=== PATIENT | male | born 1970 | race Caucasian/White ===

== ENCOUNTER → 2018-03-26 12:25 | Outpatient (CLI) | payer BC, SELFPAY ==
--- NOTE | 2018-03-26 12:32 | RAD_ITS ---
STUDY: X-RAY - RIGHT ANKLE REASON FOR EXAM: Male, 47 years old. Injury. Pain. TECHNIQUE: 3 view(s) of the ankle. COMPARISON: None. FINDINGS: Normal visualized distal tibia and fibula. Normal medial and lateral malleoli. Normal tibiotalar articulation and ankle mortise. Normal visualized talus and calcaneus. The visualized subtalar, talonavicular, calcaneocuboid and tarsal articulations are normal. There is no demonstrated fracture. The soft tissue structures are unremarkable. RAD/Ankle min 3 Views IMPRESSION: Normal x-ray examination of the ankle. Electronically Signed: Jass Grider MD at 17:33 EDT , Service support ,
== END ==
LOC: MTRAD 12:27
PROVIDERS: Family Provider Family Medicine; PCP Family Medicine; Visit Provider Family Medicine
DX: S93.491A Sprain of other ligament of right ankle, initial encounter (principal); X58.XXXA Exposure to other specified factors, initial encounter
CPT/HCPCS: 73610

== ENCOUNTER → 2018-04-03 15:57 | Outpatient (CLI) | payer BC, SELFPAY ==
[2018-04-03 18:23] LABS: Anion Gap 10 (5-15); BUN 25 mg/dL (7-18); BUN/Creat Ratio 26.2 RATIO (10-20); Chloride 106 mmol/L (98-107); Creatinine, Serum 0.96 mg/dL (0.70-1.30); EST Glomerular Filtration Rate 90 mL/min (>60); Est Glom Filt Rate - Afr Amer 109 mL/min (>60); Glucose 88 mg/dL (74-106); Potassium 3.6 mmol/L (3.5-5.1); Sodium Level 142 mmol/L (136-145)
== END ==
PROVIDERS: Family Provider Family Medicine; PCP Family Medicine; Visit Provider Family Medicine
DX: I10 Essential (primary) hypertension (principal)
CPT/HCPCS: 36415; 80048

== ENCOUNTER → 2019-05-17 14:30 | Outpatient (CLI) | payer BC, SELFPAY ==
[2019-05-17 16:24] LABS: Anion Gap 6 (5-15); BUN 15 mg/dL (7-18); BUN/Creat Ratio 19.3 RATIO (10-20); Calcium,Total 8.7 mg/dL (8.5-10.1); Chloride 111 mmol/L (98-107); Cholesterol 158 mg/dL (200); Creatinine, Serum 0.78 mg/dL (0.70-1.30); EST Glomerular Filtration Rate 114 mL/min (>60); Est Glom Filt Rate - Afr Amer 137 mL/min (>60); Glucose 79 mg/dL (74-106); High Density Lipoprotein 33 mg/dL; Potassium 3.6 mmol/L (3.5-5.1); Sodium Level 143 mmol/L (136-145); Triglycerides 106 mg/dL; Very Low Density Lipoprotein 21 mg/dL (5-40)
== END ==
PROVIDERS: Family Provider Family Medicine; PCP Family Medicine; Referring Provider Family Medicine; Visit Provider Family Medicine
DX: I10 Essential (primary) hypertension (principal)
CPT/HCPCS: 36415; 80048; 80061

== ENCOUNTER → 2020-05-29 16:49 | Outpatient (CLI) | payer BC, SELFPAY ==
[2020-05-29 19:19] LABS: Anion Gap 5 (5-15); BUN 19 mg/dL (7-18); BUN/Creat Ratio 22.1 RATIO (10-20); Calcium,Total 8.4 mg/dL (8.5-10.1); Chloride 111 mmol/L (98-107); Cholesterol 139 mg/dL (200); Creatinine, Serum 0.86 mg/dL (0.70-1.30); EST Glomerular Filtration Rate 101 mL/min (>60); Est Glom Filt Rate - Afr Amer 122 mL/min (>60); Glucose 88 mg/dL (74-106); High Density Lipoprotein 31 mg/dL; Potassium 3.7 mmol/L (3.5-5.1); Sodium Level 142 mmol/L (136-145); Triglycerides 143 mg/dL; Very Low Density Lipoprotein 29 mg/dL (5-40)
== END ==
PROVIDERS: PCP Family Medicine; Visit Provider Family Medicine
DX: I10 Essential (primary) hypertension (principal)
CPT/HCPCS: 36415; 80048; 80061

== ENCOUNTER → 2021-06-16 09:52 | Outpatient (CLI) | payer BC, SELFPAY ==
[2021-06-16 12:22] LABS: Anion Gap 7 (5-15); BUN 17 mg/dL (7-18); BUN/Creat Ratio 24.4 RATIO (10-20); Calcium,Total 8.7 mg/dL (8.5-10.1); Chloride 111 mmol/L (98-107); Cholesterol 174 mg/dL (200); EST Glomerular Filtration Rate 127 mL/min (>60); Est Glom Filt Rate - Afr Amer 154 mL/min (>60); Glucose 86 mg/dL (74-106); High Density Lipoprotein 32 mg/dL; Potassium 3.7 mmol/L (3.5-5.1); Sodium Level 141 mmol/L (136-145); Triglycerides 148 mg/dL; Very Low Density Lipoprotein 30 mg/dL (5-40)
== END ==
PROVIDERS: PCP Family Medicine; Referring Provider Family Medicine; Visit Provider Family Medicine
DX: I10 Essential (primary) hypertension (principal)
CPT/HCPCS: 36415; 80048; 80061

== ENCOUNTER 2021-12-31 14:47 | Outpatient (CLI) | payer BC, SELFPAY ==
[2021-12-31 17:57] LABS: PSA,Total - Annual Screen 2.04 ng/mL (0.00-4.00)
== END 2021-12-31 23:59 | disposition home or self-care (01) ==
LOC: MFPLAB 14:48
PROVIDERS: PCP Family Medicine; Referring Provider Family Medicine; Visit Provider Family Medicine
DX: Z00.00 Encounter for general adult medical examination without abnormal findings (principal); Z12.5 Encounter for screening for malignant neoplasm of prostate
CPT/HCPCS: 36415; 84153; G0103

== ENCOUNTER → 2023-02-17 | Outpatient (CLI) | payer BC, SELFPAY ==
--- NOTE | 2023-02-17 07:49 | CT_ITS ---
STUDY: LOW DOSE CT LUNG CANCER SCREENING REASON FOR EXAM: Male, 52 years old. screening- current smoker. 1PPD X 21 YEARS RADIATION DOSAGE (If Supplied By Facility): CTDIvol = ( 4.02 ) mGy, DLP = ( 154.01 ) mGycm TECHNIQUE: No contrast was administered. Low dose technique was utilized (average mAS-38 and kVp 120). 1.25 mm axial source images with a slice interval of 1.25-mm were reconstructed in lung windows. 2.5 mm axial source images with a slice interval of 2.5-mm were reconstructed in lung windows. 5.0 mm axial source images with a slice interval of 5.0-mm were reconstructed in soft tissue windows. COMPARISON: None. NODULES: No suspicious nodules are seen. Emphysema: Unremarkable. Endobronchial lesion: Unremarkable. Aorta: Remarkable. CORONARY ARTERIES: Coronary artery calcification is not seen. Heart: Unremarkable. Pulmonary artery: Unremarkable. Mediastinal nodes: Small benign-appearing mediastinal lymph nodes. Other chest and abdominal findings: CT/Low Dose CT Lung Screening IMPRESSION: Lung-RADS category 2 - Continue annual screening with LDCT in 12 months. IMPORTANT NOTES FOR USE: ACR Lung-RADS Version 1.1 Assessment Categories Release Date: 2018 Category: Coded 0-4 bases on nodule(s) with highest degree of suspicion. Negative screen is defined as categories 1 and 2; a positive screen is defined as categories 3 and 4. Category 3 and 4A nodules that are unchanged on interval CT should be coded as category 2, and individuals returned to screening in 12 months. Category 4X: Category 3 or 4 nodules with additional imaging findings that increase the suspicion of lung cancer, such as spiculation, GGN that doubles in size in 1 year, enlarged lymph notes, etc. Category Modifiers: S (significant finding unrelated to lung cancer) Electronically Signed: Gregorio Ibrahim MD at 14:55 EDT ,
[2023-02-17 10:43] LABS: ALB/GLOB Ratio 1.1 RATIO (0.9-2.4); AST(SGOT) 27 U/L (15-37); Alanine Aminotransfer ALT/SGPT 43 U/L (16-61); Albumin, Serum 3.9 g/dL (3.2-5.0); Alkaline Phosphatase 90 U/L (45-117); Anion Gap 4 (5-15); BUN 13 mg/dL (7-18); Calcium,Total 8.8 mg/dL (8.5-10.1); Chloride 111 mmol/L (98-107); Cholesterol 167 mg/dL (200); Creatinine, Serum 0.68 mg/dL (0.70-1.30); EST Glomerular Filtration Rate 130 mL/min (>60); Est Glom Filt Rate - Afr Amer 157 mL/min (>60); Globulin 3.4 g/dL (2.2-4.2); Glucose 104 mg/dL (74-106); High Density Lipoprotein 34 mg/dL; Potassium 3.7 mmol/L (3.5-5.1); Protein, Total 7.3 g/dL (6.4-8.2); Sodium Level 142 mmol/L (136-145); Triglycerides 76 mg/dL; Very Low Density Lipoprotein 15 mg/dL (5-40)
== END | disposition home or self-care (01) ==
PROVIDERS: PCP Family Medicine; Referring Provider Nurse Practitioner Family; Visit Provider Nurse Practitioner Family
DX: Z12.2 Encounter for screening for malignant neoplasm of respiratory organs (principal); F17.210 Nicotine dependence, cigarettes, uncomplicated; Z13.220 Encounter for screening for lipoid disorders; Z13.1 Encounter for screening for diabetes mellitus
CPT/HCPCS: 36415; 71271; 80053; 80061

== ENCOUNTER → 2024-03-15 | Outpatient (CLI) | payer BC, SELFPAY ==
[2024-03-15 10:40] LABS: Anion Gap 5 (5-15); BUN 15 mg/dL (7-18); BUN/Creat Ratio 18.1 RATIO (10-20); Calcium,Total 8.9 mg/dL (8.5-10.1); Chloride 109 mmol/L (98-107); Cholesterol 149 mg/dL (200); Creatinine, Serum 0.83 mg/dL (0.70-1.30); EST Glomerular Filtration Rate 104 mL/min (>60); Est Glom Filt Rate - Afr Amer 125 mL/min (>60); Glucose 91 mg/dL (74-106); High Density Lipoprotein 29 mg/dL; Potassium 3.7 mmol/L (3.5-5.1); Sodium Level 141 mmol/L (136-145); Triglycerides 65 mg/dL; Very Low Density Lipoprotein 13 mg/dL (5-40)
== END | disposition home or self-care (01) ==
LOC: MTLAB 08:57
PROVIDERS: PCP Family Medicine; Referring Provider Family Medicine; Visit Provider Family Medicine
DX: Z00.00 Encounter for general adult medical examination without abnormal findings (principal)
CPT/HCPCS: 36415; 80048; 80061

== ENCOUNTER 2024-04-12 11:25 | Outpatient (CLI) | payer BC, SELFPAY ==
[2024-04-12 16:25] LABS: Anion Gap 7 (5-15); BUN 15 mg/dL (7-18); BUN/Creat Ratio 21.6 RATIO (10-20); Chloride 110 mmol/L (98-107); Cholesterol 175 mg/dL (200); EST Glomerular Filtration Rate 126 mL/min (>60); Est Glom Filt Rate - Afr Amer 153 mL/min (>60); Glucose 103 mg/dL (74-106); High Density Lipoprotein 32 mg/dL; PSA,Total- Diagnostic 1.96 ng/mL (0.0-4.0); Potassium 3.6 mmol/L (3.5-5.1); Sodium Level 141 mmol/L (136-145); Triglycerides 191 mg/dL; Very Low Density Lipoprotein 38 mg/dL (5-40)
[2024-04-12 17:32] LABS: Protein, Urine (Random) 12.1 mg/dL (<11.9); Protein:Creat Ratio 110 mg/g CRE (0-200)
== END 2024-04-12 23:59 | disposition home or self-care (01) ==
LOC: MFPLAB 11:25
PROVIDERS: PCP Family Medicine; Visit Provider Family Medicine
DX: Z12.5 Encounter for screening for malignant neoplasm of prostate (principal); I10 Essential (primary) hypertension
CPT/HCPCS: 36415; 80048; 80061; 82570; 84153; 84156

== ENCOUNTER → 2024-04-19 | Outpatient (CLI) | payer BC, SELFPAY ==
--- NOTE | 2024-04-19 08:33 | US_ITS ---
STUDY: ABDOMINAL ULTRASOUND - RIGHT UPPER QUADRANT REASON FOR VISIT: Male, 53 years old right upper quadrant pain TECHNIQUE: Ultrasound evaluation of the right upper quadrant was performed with real-time and static rowland-scale imaging. TECHNICAL QUALITY: Limited. Examination limited due to a combination of factors including obesity and bowel gas. COMPARISON: None. FINDINGS: Liver: The liver is enlarged and measures 22.1 cm. There is increased echogenicity consistent with fatty infiltration. The bile ducts are within normal limits. There is hepatic color flow. The direction of portal flow is hepatopetal. There is no demonstrated mass lesion. Gallbladder: Normal distended gallbladder. The gallbladder wall is thickened and measures 3.6 mm. There is a negative sonographic Dietz''s sign. There is no pericholecystic fluid. There are multiple echogenic structures within the gallbladder, consistent with multiple gallstones. Common Bile Duct (C.B.D.): The common bile duct measures 4.5 mm. Pancreas: Normal size of the head, body and tail of the pancreas. There is normal echogenicity of the pancreas. There is no demonstrated pancreatic mass or cyst. Right Kidney: Normal size of the right kidney. The right kidney measures 12.7 cm x 5.7 cm x 4.3 cm. Normal renal cortex. The right cortex measures 1.3 cm. There is no demonstrated renal mass or cyst. There is no right hydronephrosis. US/Abdomen Limited IMPRESSION: Hepatomegaly and diffuse fatty infiltration of the liver. Multiple gallstones. Questionable adenomyomatosis of the gallbladder. Electronically Signed: Gregorio Ibrahim MD at 9:39 EDT ,
== END | disposition home or self-care (01) ==
LOC: US 08:30
PROVIDERS: PCP Family Medicine; Referring Provider Family Medicine; Visit Provider Family Medicine
DX: R10.11 Right upper quadrant pain (principal)
CPT/HCPCS: 76705

== ENCOUNTER 2024-05-13 12:36 | Observation (INO) | payer BC, SELFPAY ==
[2024-05-13] VITALS (19 sets, daily range): BP systolic 128–153; BP diastolic 75–115; PULSE 73–113; RESP 14–24; TEMP 36.1–36.8; O2SAT 91–100; BMI 35.4; BMI 35.6
--- NOTE | 2024-05-13 09:01 | EKG12_ITS ---
Test Reason : PREOP Blood Pressure : / mmHG Vent. Rate : 075 BPM Atrial Rate : 075 BPM P-R Int : 180 ms QRS Dur : 082 ms QT Int : 394 ms P-R-T Axes : 012 005 033 degrees QTc Int : 439 ms Normal sinus rhythm Normal ECG When compared with ECG of 13-MAY-2010 11:14, No significant change was found Confirmed by Byron Michelle ([id number]), electronic news gathering editor DANA TATUM ([id number]) on 05/17/2024 9:24:16 AM Referred By: Jose Coronado Confirmed By:Byron Michelle
[2024-05-13] MEDS: Lactated Ringers 1,000 ML 15 ML IV (09:19)
[2024-05-13 09:33] LABS: Hematocrit 45.8 % (40-54); Hemoglobin 15.8 g/dL (13.0-16.5); Mean Corp Hgb Conc 34.5 g/dL (32-36); Mean Corpuscular Hgb 30.9 pg (27.0-32.0); Mean Corpuscular Volume 89.5 fL (80-94); Mean Platelet Vol. 10.8 fl (6.2-12.0); Platelet Count 188 K/mm3 (150-450); RBC Distribution Width CV 12.5 % (11.6-14.6); Red Blood Count 5.12 M/mm3 (4.6-6.2); White Blood Count 11.7 K/mm3 (4.4-11.0)
--- NOTE | 2024-05-13 09:42 | PCM.PRE.AN2 ---
ASA Classification* ASA Classification ASA Classification: 2 Assessment & Plan Anesthesia* Anesthesia Assessment Anesthesia Assessment: Discussed sedation and/or anesthesia options, risks, benefits, and alternatives with patient/parents/legal guardian/POA. Questions invited. The patient/parents/legal guardian/POA seems to understand and agrees to proceed with anesthesia plan. Reviewed the physical assessment, medical history, allergy history and patient home medications list prior to surgery/procedure/anesthetic and documented any changes. Performed airway and anesthesia risk assessments. Anesthesia Type Anesthesia Type: General (see written pre anesthesia record for full assessment) Anesthesia Focused Assessment* Temperature: 97.7 F Pulse Rate: 73 Blood Pressure: 132/95 Respiratory Rate: 16 Pulse Ox: 100 Airway Assessment Mouth opens: >3 cm Mallampati Score: II Focused Labs Anesthesia Preop lab: CBC WBC 11.7 K/mm3 (4.4-11.0) H 05/13/24 09:27 RBC 5.12 M/mm3 (4.6-6.2) 05/13/24 09:27 Hgb 15.8 g/dL (13.0-16.5) 05/13/24 09:27 Hct 45.8 % (40-54) 05/13/24 09:27 Plt Count 188 K/mm3 (150-450) 05/13/24 09:27 CHEMISTRY Potassium 3.6 mmol/L (3.5-5.1) 04/12/24 11:25 Sodium 141 mmol/L (136-145) 04/12/24 11:25 BUN 15 mg/dL (7-18) 04/12/24 11:25 Creatinine 0.70 mg/dL (0.70-1.30) 04/12/24 11:25 Glucose 103 mg/dL (74-106) 04/12/24 11:25 TSH 1.54 uIU/mL (0.358-3.74) 02/09/16 10:22 COAG Pre-Assessment Diagnosis/Proposed Procedure Planned Operative Procedure(s): LAP ENE WITH IOC Anesthesia History Anesthesia History - preforms laminator: Anesthesia History - preforms laminator Hx Hospitalization No 05/08/24 12:59 Any Problems With Anesthesia No 05/08/24 12:59 Cholinesterase deficiency No 05/08/24 12:59 You/Your Family Experience No 05/08/24 12:59 fever (hyperthermia) with Relationship Recent Exposure to Contagious No 05/13/24 09:17 Disease Does patient have nerve No 05/08/24 12:59 stimulator Patient instructed to have device shut off --Does patient have Pacemaker No 05/13/24 09:17 or ICD? When Was Last Pacemaker Check QUESTION #4 FULL TEXT: You/Your Family Experience fever (hyperthermia) with Anesthesia Last Oral Intake Last Oral intake: Last Oral Intake NPO since 22:00 05/13/24 09:17 Meds taken in AM with sips of water? Meds patient instructed to take am of surgery PONV PONV - preforms laminator: PONV - preforms laminator Female No 05/08/24 12:59 HX of Motion Sickness No 05/08/24 12:59 HX of N/V After Surgery No 05/08/24 12:59 Non-Smoker No 05/08/24 12:59 Duration of Surgery greater Yes 05/08/24 12:59 than 60 minutes Number of Risk Factors 1 05/08/24 12:59 PONV Score Low Risk 05/08/24 12:59 Height & Weight Height & Weight: Anesthesia: Height & Weight Height 6 ft 1 in 05/13/24 09:17 Weight: 122 kg 05/13/24 09:17 Body Mass Index (BMI) 35.4 05/13/24 09:17 Respiratory Assessment Respiratory Assessment - preforms laminator: Respiratory Tract Infection Hx - preforms laminator Hx Respiratory Tract Infection No 05/08/24 12:59 STOP Sleep Apnea STOP Sleep Apnea - preforms laminator: STOP Sleep Apnea - preforms laminator Hx Hypertension Yes: CONTROLLED WITH MED 05/08/24 12:59 Hx Sleep Apnea Yes 05/08/24 12:59 CPAP Yes 05/08/24 12:59 BIPAP No 05/08/24 12:59 Do you snore loudly (louder than talking or can be heard Do you often feel tired/ fatigued/ sleepy during daytime? Has anyone observed you stop breathing during sleep? STOP Results Positive 05/08/24 12:59 QUESTION #5 FULL TEXT : Do you snore loudly (louder than talking or can be heard through closed doors)? Tobacco Use History Tobacco Use History - preforms laminator: Tobacco Use History - preforms laminator Tobacco Use Smoking Status Current every day smoker 05/08/24 12:59 Hx Tobacco Use Yes 05/08/24 12:59 Years Smoking Packs Smoked per Day 1 05/08/24 12:59 Smoking Cessation Date was within the last 15 years Hx Smoking Cessation Date Hx Smoking Cessation Counseling Hematologic Medial History Hematologic Hx - preforms laminator: Hematologic Medical Hx - hims manager Hx of Blood Transfusion No 05/08/24 12:59 Hx of Transfusion in last 3 No 05/08/24 12:59 Months Date of Last Transfusion (if within last 3 months) Ever experience any problems No 05/08/24 12:59 with transfusion(s)? Specify any problems Hx of Preganancy in last 3 N/A 05/08/24 12:59 Months Nurse Filling Out Transfusion NBUCHER 05/08/24 12:59 & Questions: Date: 05/08/24 05/08/24 12:59 Time: 13:01 05/08/24 12:59 Patient unable to answer at this time (ie. confused, unrespo /Reproduction History /Reproductive History - preforms laminator: /Reproductive Hx- preforms laminator Hx Now No 05/08/24 12:59 Gestational Age (in weeks): EDC: Hx Hx Para Hx Section SAB No 05/08/24 12:59 Active Medications Active Medications: Current Medications Generic Name Dose Route Start Last Admin Trade Name Freq PRN Reason Stop Dose Admin Cefotetan Disodium 2 gm/ 100 mls @ 200 mls/hr 05/13/24 10:30 Sodium Chloride IV 05/13/24 10:59 PREOP ONE Lactated Ringer's 1,000 mls @ 15 mls/hr 05/13/24 09:15 05/13/24 09:19 IV 15 mls/hr .Q48H ISA Administration PFSH Medical History Heartburn History of edema Smoker CPAP (continuous positive airway pressure) dependence Sleep apnea Home Medications ?Medication ?Instructions ?Recorded ?Last Taken ?Type amlodipine 5 mg tablet 5 mg PO QDAY 05/03/24 Unknown History hydrochlorothiazide 12.5 mg capsule 12.5 mg PO QDAY 05/03/24 Unknown History turmeric root extract 500 mg 500 mg PO DAILY 05/03/24 Unknown History capsule Allergy/AdvReac Type Severity Reaction Status Date / Time aspirin AdvReac Mild Other Verified 05/13/24 09:16 Surgical History History of esophagogastroduodenoscopy (EGD) History of colonoscopy Social History Smoking Status: Current every day smoker tobacco type: cigarettes alcohol intake: never substance use type: does not use Review of Systems (Anesthesia) ROS Narrative System reviewed and no additional complaints, except as documented.
--- NOTE | 2024-05-13 10:12 | PCM.HP.BLA ---
History and Physical Date of Admission: 05/13/24 Intake Vital Signs 05/03/2408:45 Height 6 ft 1 in Weight: 273 lb 8 oz BMI 36.1 BP 136/87 H Blood Pressure Location Rt brachial Position Sitting Respiration 18 Pulse 72 Pulse Source Monitor Temp 97.1 F L Temp Source Temporal Pulse Oximetry (%) 97 Oxygen Delivery Method room air Intake Visit Reasons: GALLSTONES Chief Complaint: gallstones Accompanied by: Is patient in pain?: No Allergies aspirin Adverse Reaction (Mild, Verified 05/03/24 08:48) Other Medications ?Medication ?Instructions ?Recorded ?Confirmed ?Type amlodipine 5 mg tablet 5 mg PO QDAY 05/03/24 05/03/24 History hydrochlorothiazide 12.5 mg capsule 12.5 mg PO QDAY 05/03/24 05/03/24 History turmeric root extract 500 mg 500 mg PO DAILY 05/03/24 05/03/24 History capsule PFSH Social History (Updated 05/03/24 @ 08:45 by Mini Keen LPN) Smoking Status: Current every day smoker tobacco type: cigarettes alcohol intake: never substance use type: does not use HPI HPI HPI: Patient is a 53-year-old male here for gallstones. He says he found out he had gallstones 13 years ago and has been putting off surgery and has daily dull aching pain in the right side. He says it especially hurts when bending or leaning over. He recently had an ultrasound showed a mildly thickened gallbladder wall with gallstones. He denies nausea or vomiting. He denies fevers or chills. ROS General General: No weight change, appetite, fatigue, colon cancer, breast cancer or weakness HEENT HEENT: No difficulty swallowing, eye injury, eye surgery, swollen glands or hoarseness Endo Endocrine: No thyroid disease, diabetes mellitus, thyroid cancer, Hair loss, heat intolerance or cold intolerance Skin Skin: No rash or changing moles Musc Musculoskeletal: No back problems, arthritis, rheumatoid arthritis, gout or joint pain Cardio Cardiovascular: Yes high blood pressure; No murmur, pacemaker, heart disease, atrial fibrillation, heart attack, heart stent, palpitations, shortness of breat with exertion or chest pain Psych Psychiatric: No depression, anxiety or hearing voices Resp Respiratory: No shortness of breath, Yes sleep apnea, No cough, No COPD, No asthma, No emphysema and No wheezing Gastro Gastrointestinal: Yes abdominal pain (RUQ), No nausea or vomiting, No diarrhea, No constipation, No blood in stool, No acid reflux, No hemorrhoids, No ulcers, Yes gallbladder problem and No black,tarry stools Dileep Hematologic: Yes blood thinners, No blood disorders, No bleeding, No anemia and No blood clots Additional Details: fish oil Neuro Neurologic: No numbness, No tingling and No weakness Exam Const General: cooperative Orientation: alert and oriented x3 HENMT Head: normal to inspection Neck Neck: normal visual inspection and full ROM Chest Chest palpation & inspection: normal inspection of the chest Resp Effort & Inspection: normal respiratory effort Auscultation: clear to auscultation bilaterally Cardio Rate: regular rate Rhythm: regular rhythm GI Inspection: non-distended Palpation: soft and nontender Skin General: no rashes or lesions noted Neuro General: patient alert and patient oriented x3 Extrem General: full ROM Psych Appearance: grossly normal Mental Status: mental status grossly normal Assessment and Plan Assessment and Plan (1) Gallstones: Status: Acute Plan: I reviewed his imaging with him and he does have gallstones and right upper quadrant pain. Recommend laparoscopic cholecystectomy. I discussed the procedure in detail with the patient. I discussed the risks, benefits, and alternatives of the procedure. I discussed the risks including but not limited to bleeding, infection, injury to surrounding organs such as the liver, bile duct, bowels. I did discuss the possibility of having to convert to an open procedure as well as the possibility that if any injuries occurred this may necessitate further surgery at a tertiary care center. Jose Coronado MD Pager: [facility] [address] [place] [address], [address] [place] [address] Office: I have examined the patient and the H&P has been reviewed. There are no clinical changes since date of exam.
[2024-05-13] MEDS: Cefotetan 2 GM in 0.9% NS 100 ML IV (10:26)
--- NOTE | 2024-05-13 10:30 | GALL_PTH ---
PATIENT: PHUC PEREZ LOC: MS3 U#:[id number] AGE/SX: 53/M ROOM: SC322 RE05/13/[address]: Dr. Jose Coronado MD : 1970 BED: 1 DIS: 05/14/2024 SPEC #: [id number] RECD: 05/13/24 13:51 STATUS: CAESAR ZALDIVAR #: [id number] ARON: 05/13/24 10:[address]: Jose Coronado DEPT: SURGICAL PATHOLOGY RECD BY: Margarita Giron ENTERED: 05/14/24 10:11 SP TYPE: REMI LUCERO DR: Dr. Angelika Nicholas MD Tissues: Gallbladder, NOS Procedures: Surgery Specimen Level III HEADER OPERATION: Laparoscopic, cholecystectomy with IOC PRE-OP DIAGNOSIS: Gallstones TISSUE SUBMITTED: Gallbladder and contents MICROSCOPIC DIAGNOSIS Gallbladder, cholecystectomy: Chronic cholecystitis and cholelithiasis. SJ/mr 05/15/2024 MICROSCOPIC DESCRIPTION Slides are reviewed. GROSS DESCRIPTION Received is one container labeled with the patient's name and designated gallbladder. The specimen consists of a gallbladder measuring 10.0 cm in length and up to 5.0 cm in diameter. The external surface is pink-kidd, smooth and glistening for the most part. Focally it is granular, hemorrhagic and contains cautery artifact. The gallbladder contains hemorrhagic- mucoid bile and two brownish-black stones measuring in aggregate 0.9 and 2.0cm in greatest dimension. The larger stone with impacted in the proximal portion of the gallbladder. The mucosa is bile-stained and without any mass lesions. The gallbladder wall measures up to 0.3 cm in thickness. Residential Builder sections from the gallbladder and the cystic duct are submitted in three cassettes. / [place]: 05/14/2024 TC:3 CPT: 31914
--- NOTE | 2024-05-13 10:52 | RAD_ITS ---
EXAM: FL CHOLANGIOGRAPHY AND/OR PANCREATOGRAPHY CLINICAL INDICATION: TECHNIQUE: Cine fluoroscopic images of the upper abdomen obtained at the time of laparoscopic cholecystectomy. Contrast injected via the cystic duct. COMPARISON: No relevant prior studies available. FINDINGS: Normal-appearing biliary tree. No filling defects to indicate retained stone. There is visualization of the duodenum. See operative note for additional information. RAD/Cholangiogram/ O R,Initial IMPRESSION: Normal operative cholangiogram. Electronically Signed: Mario Reyes MD at 11:50 EDT ,
[2024-05-13] MEDS: Bupiv/Epi 0.25% 30 ML Vial (12:05)
--- NOTE | 2024-05-13 12:09 | PCM.POST.ANE ---
Anesthesia: Postop Eval I Current Vital Signs Temperature: 97 F Pulse Rate: 110 Blood Pressure: 151/75 Respiratory Rate: 14 Pulse Ox: 94 Oxygen Delivery Method: Room Air Assessment Airway patent: Yes Spontaneous unlabored respirations: Yes Mental status: Awake nausea: No Vomiting: No Anesthesia Complication: No Fluid Hydration Crystalloid volume administer (ml): 1,000 Total IV fluid infused: 1,000 Progress Note Anesthesia document: Postop Eval 1 completed: Yes
--- NOTE | 2024-05-13 13:45 | POSTOPAN2_ITS ---
Anesthesia Postop Eval I Sum Postop Eval Completion status Anesthesia document: Postop Eval 1 completed: Yes Anesthesia Postop Eval I Summary Anesthesia Postop Eval I Summary: Anesthesia Postop Eval I: Assessment Summary Airway patent Yes 05/13/24 12:25 [email or web address] Spontaneous unlabored Yes 05/13/24 12:25 [email or web address] [email or web address] respirations Mental status Awake 05/13/24 12:25 [email or web address] nausea No 05/13/24 12:25 [email or web address] [email or web address] Vomiting No 05/13/24 12:25 [email or web address] [email or web address] Anesthesia Postop Eval I: Fluid Summary Crystalloid volume administer 1,000 05/13/24 12:25 [email or web address] [email or web address] (ml) Colloids volume administered ( ml) Blood Product volume administered (ml) Total IV fluid infused 1,000 05/13/24 12:25 [email or web address] [email or web address] Anesthesia Postop Eval I: Summary Notes Anesthesia Complication No 05/13/24 12:25 [email or web address] [email or web address] Anesthesia Complication Comment: Post-operative progress note Anesthesia: Postop Eval II Evaluation Mental status: Awake Pain Level: 0 nausea: No Vomiting: No
--- NOTE | 2024-05-13 13:45 | PCM.POSTANE2 ---
Anesthesia Postop Eval I Sum Postop Eval Completion status Anesthesia document: Postop Eval 1 completed: Yes Anesthesia Postop Eval I Summary Anesthesia Postop Eval I Summary: Anesthesia Postop Eval I: Assessment Summary Airway patent Yes 05/13/24 12:25 [email or web address] [email or web address] Spontaneous unlabored Yes 05/13/24 12:25 HOT [email or web address] respirations Mental status Awake 05/13/24 12:25 [email or web address] nausea No 05/13/24 12:25 HOT [email or web address] Vomiting No 05/13/24 12:25 HOT [email or web address] Anesthesia Postop Eval I: Fluid Summary Crystalloid volume administer 1,000 05/13/24 12:25 [email or web address] [email or web address] (ml) Colloids volume administered ( ml) Blood Product volume administered (ml) Total IV fluid infused 1,000 05/13/24 12:25 HOT [email or web address] Anesthesia Postop Eval I: Summary Notes Anesthesia Complication No 05/13/24 12:25 [email or web address] [email or web address] Anesthesia Complication Comment: Post-operative progress note Anesthesia: Postop Eval II Evaluation Mental status: Awake Pain Level: 0 nausea: No Vomiting: No
--- NOTE | 2024-05-13 13:52 | PCM.OPRPT ---
Report of Operation Date of Procedure: 05/13/24 Pre-Operative Diagnosis: Cholelithiasis Post-Operative Diagnosis: Acute on chronic cholecystitis Surgery/Procedure Performed:: Laparoscopic cholecystectomy with cholangiograms Type of Anesthesia: General/Regional Specimen's removed: Gallbladder and contents Estimated Blood Loss (mL): 50 Description of Procedure: After obtaining informed consent patient was brought back to the operating room. General anesthesia was induced. The abdomen was prepped and draped in usual sterile fashion. A small midline incision was made superior to the umbilicus and deepened to the level of fascia. The fascia was elevated and incised. Next the peritoneum was elevated and incised in the same fashion. Finger sweep was performed and the Smith trocar was placed into the abdomen. The balloon was inflated. The abdomen was inflated to 15 mmHg. Next a camera was introduced into the abdomen and the abdomen was inspected. Next under direct visualization three 5-mm ports were placed one subxiphoid and 2 subcostal. The gallbladder was identified adherent to the overlying omentum. This was dissected free. Next the gallbladder was elevated and retracted toward the right shoulder. The peritoneum was stripped from the gallbladder. The infundibulum was located and retracted laterally. Next the triangle of Calot was dissected and the cystic duct and cystic artery were identified. Cholangiograms were performed. The Tom clamp was used to clamp across the infundibulum and the catheter needle was inserted into the gallbladder. Under fluoroscopy contrast was instilled into the gallbladder and the common duct, cystic duct as well as proximal hepatic ducts were identified. There was good filling of the duodenum. There were no filling defects noted in the common bile duct. The clamp was removed as well as the needle and the infundibulum was grasped once more. Three hemolock clips were placed across the cystic duct. The cystic duct was then divided leaving 2 clips on the stump. The cystic artery was clipped and divided in the same fashion. The hook cautery was then used to take the gallbladder off of the gallbladder bed. Hemostasis was obtained using hemoblast and electrocautery. Gallbladder fossa was irrigated and no active bleeding or bile leakage was noted. Next the camera was introduced in the subxiphoid port. An Endopouch bag was placed through the umbilical port and the gallbladder was placed into it. The gallbladder was then removed through the umbilical incision. The camera was then reinserted through the umbilical port. The gallbladder fossa was inspected once more and noted to be hemostatic with no leaking bile. The abdomen was suctioned dry. The 5 mm ports were removed under direct visualization. The umbilical port was then removed and the air was removed from the abdomen. Next using an 0 Vicryl suture the umbilical fascia was closed in a [id number] fashion. The umbilical port site was irrigated local anesthetic was administered to all the incisions. All the incisions were closed with interrupted subcuticular 4-0 Monocryl sutures followed by Steri-Strips and dressings. The patient was awoken and taken to PACU in stable condition. Admit VTE Documentation VTE Mechan Device Prophylaxis: SCD's
[2024-05-13] MEDS: 0.9% Normal Saline (1000mL) 1,000 ML 100 ML IV ×2 (15:47→23:20)
[2024-05-13 16:01] LABS: Hematocrit 47.7 % (40-54); Hemoglobin 16.7 g/dL (13.0-16.5)
[2024-05-13] MEDS: oxyCODONE 5 MG Tablet PO (23:19)
[2024-05-13] MEDS: Acetaminophen 325 MG Tablet 650 MG PO (23:20)
[2024-05-14 06:30] VITALS: BP 147/97; PULSE 65; RESP 18; TEMP 36.9; O2SAT 96
[2024-05-14] MEDS: Acetaminophen 325 MG Tablet 650 MG PO (06:48)
--- NOTE | 2024-05-14 07:34 | PCM.PN.SRG ---
Subjective Subjective Patient is much more comfortable than yesterday. He reports no nausea or vomiting. He tolerated clears well. He reports some difficulty urinating. Objective Data Objective Data Vital Signs: Vital Signs Temp Pulse Resp BP Pulse Ox O2 Del Method O2 Flow Rate 98.4 F 65 18 147/97 H 96 Room Air 2 05/14/24 06:30 05/14/24 06:30 05/14/24 06:30 05/14/24 06:30 05/14/24 06:30 05/14/24 06:30 05/13/24 18:50 Oxygen Flow Rate (L/min) 2 Oxygen Delivery Method Room Air Weight: 268 lb 15.423 oz Body Mass Index (BMI) 35.6 Intake & Output: Intake and Output for Last 24 Hours 05/12/24 05/13/24 05/14/24 23:59 23:59 23:59 Intake Total 1952.25 / 1952.25 800 / 800 Output Total 150 / 150 Balance 1802.25 / 1802.25 800 / 800 Lab / Micro Data 05/13/24 15:40 Labs: Laboratory Results - last 24 hr 05/13/24 09:27: WBC 11.7 H, RBC 5.12, Hgb 15.8, Hct 45.8, MCV 89.5, MCH 30.9, MCHC 34.5, RDW Std Deviation 41.0, RDW Coeff of Mp 12.5, Plt Count 188, MPV 10.8 05/13/24 15:40: Hgb 16.7 H, Hct 47.7 Radiography Diagnostic Testing: Radiology Impression Cholangiogram 05/13/24 10:52 IMPRESSION: Normal operative cholangiogram. Electronically Signed: Mario Reyes MD at 11:50 EDT , Physical Exam Const oriented x3 and no apparent distress Resp normal respiratory effort GI soft to palpation Palpation: tender RUQ Assessment & Plan Assessment/Plan (1) Gallstones: PLAN: The patient had acute on chronic cholecystitis during his laparoscopic cholecystectomy yesterday. There is extensive inflammation and he was kept overnight for observation. He reports some difficulty urinating I will start him on some Flomax. He says that he is having some mild pain in the right upper quadrant when he coughs. Denies nausea or vomiting. I will advance to regular diet as long as his labs are stable I will discharge him home today. Jose Coronado MD Pager: [facility] [address] [place] [address], [address] [place] [address] Office:
[2024-05-14 07:49] LABS: Absolute Lymphocyte Count 2.35 X10^3/uL (0.83-4.51); Absolute Neutrophil Count 10.7 X10^3/uL (2.0-7.7); Basophil# 0.01 X10^3/uL; Basophil% 0.1 % (0-1); Hematocrit 45.5 % (40-54); Hemoglobin 15.6 g/dL (13.0-16.5); Lymphocyte # 2.35 X10^3/ul (0.83-4.51); Lymphocyte % 16.6 % (19-41); Mean Corp Hgb Conc 34.3 g/dL (32-36); Mean Corpuscular Volume 90.5 fL (80-94); Mean Platelet Vol. 11.5 fl (6.2-12.0); Monocyte# 1.03 X10^3/uL; Monocyte% 7.3 % (0-10); NRBC Flagged by Analyzer 0 % (0-5); Neutrophil # 10.71 X10^3/uL (2.7-7.7); Neutrophil % 75.6 % (47-70); Platelet Count 186 K/mm3 (150-450); RBC Distribution Width CV 12.3 % (11.6-14.6); RBC Distribution Width SD 40.8 fl (35.1-43.9); Red Blood Count 5.03 M/mm3 (4.6-6.2); White Blood Count 14.2 K/mm3 (4.4-11.0)
--- NOTE | 2024-05-14 07:52 | DCINST_ITS ---
Discharge Instructions Diet Discharge Diet: Light diet - advance as tolerated Activity Discharge Activity: May Not Drive (for 3 days or while taking narcotic pain medications) Lifting Restrictions: No lifting greater than 15 pounds for 2 weeks Dressing / Incision Call your doctor if your incision/area has: Continuous Slow Oozing, Sudden Increased Bleeding, Increased Pain/ Swelling, Increased Redness, Foul Smelling Discharge and Swelling at the incision site Call your doctor if you observe: Fever of 101 or Higher Suture Line Care: Avoid Pulling/Pushing and Avoid Pinching/Bending Remove Dressing in: 3 days Cleanse incision/area with: Soap & Water Follow Up Care Please Follow Up With: Jose Coronado MD When: Please contact our office for a 10-14 day follow-up at [phone] Test Results: Test results from this visit will be discussed in further detail at your follow- up appointment, if applicable. Discharge Plan Admission Admit Date/Time: 05/13/24 12:36 Primary Reason for Your Visit: Chronic cholecystitis with calculus Attending Provider: Jose Coronado Primary Care Provider: Angelika Nicholas Instructions Additional Instructions / Restrictions: Cholecystectomy Diet ? Start light with soups and soft bland foods. You may advance diet as tolerated. Activity ? You may drive in 3 days but not while taking narcotic pain medication. ? I encourage walking. You may go up steps, one at a time. ? Do not swim or use hot tubs for 2 weeks. ? For comfort, you may use warm compresses or ice as needed for 15-20 minutes at a time. Lifting ? You may lift up to 15 pounds for 2 weeks. No strenuous exercise for 4 weeks. Dressings/Incision ? You may shower OVER your plastic dressings ? Do NOT tub bathe for 1 week ? Leave plastic dressings on for 3 days. ? When plastic dressings are removed, you will find steri strips. It is okay to continue showering with them in place, pat them dry. ? You may remove steri-strips after 1 week. We recommend getting them soaking wet for easier removal. Medications ? Anesthesia used during surgery and pain medications may cause constipation. I recommend initiating on the day of surgery a fiber supplement like, Metamucil, Citrucel, FiberCon, Benefiber, or a generic form of these medications. 1 heaping tablespoon in water daily. You may continue to utilize any bowel regimen or oral laxatives that you routinely take. Recommend taking Miralax for constipation as needed. Recommend taking 1 tablespoon mixed into any 8 oz beverage i.e., water, orange juice, etc. ? As long as you are not intolerant to Tylenol, acetaminophen, ibuprofen, Motrin, Advil, Aleve, or similar medications, I would recommend transitioning to these [id number] medicines as soon as possible instead of continued use of narcotic pain medication. Follow up ? You should call [facility] soon after surgery, at [phone] option 1 to make a follow up appointment for 10-14 days after your surgery. Discharge Orders/Prescriptions Prescriptions: New oxycodone 5 mg Tablet 5 mg PO Q6H PRN (Reason: pain) 3 Days Qty: 7 0RF tamsulosin 0.4 mg Capsule 0.4 mg PO QHS Qty: 7 0RF Continued hydrochlorothiazide 12.5 mg capsule 12.5 mg PO QDAY amlodipine 5 mg tablet 5 mg PO QDAY turmeric root extract 500 mg capsule 500 mg PO DAILY Referrals / Follow Up: Angelika Nicholas MD [Primary Care Provider] - Disposition Disposition (needs filled in before D/C Order can be placed): Home, Self Care
--- NOTE | 2024-05-14 08:01 | DS.PCM_ITS ---
Providers Date of Admission: 05/13/24 Primary Care Physician: Dr. Angelika Nicholas MD Reason For Visit: Laparoscopic, Cholecystectomy with Diagnosis Discharge Diagnosis (1) Gallstones: Status: Acute Code(s): K80.20 - Calculus of gallbladder without cholecystitis without obstruction Medications at Discharge Home Medications amlodipine 5 mg tablet 5 mg PO QDAY 05/03/24 hydrochlorothiazide 12.5 mg capsule 12.5 mg PO QDAY 05/03/24 turmeric root extract 500 mg capsule 500 mg PO DAILY 05/03/24 oxycodone 5 mg tablet 5 mg PO Q6H PRN pain 3 days #7 tabs 05/14/24 tamsulosin 0.4 mg capsule 0.4 mg PO QHS #7 caps 05/14/24 Hospital Course Operations cholecystecomy Summary of Care Provided Minutes Spent on Discharge: 25 Hospital Course: Patient is a 53 y/o M who presented for an elective laparoscopic cholecystectomy with IOC with Dr. Coronado on 05/13/24. Patient tolerated the procedure well. Patient had a component of acute inflammation that was noted during the procedure and also had some oozing as well. Patient was admitted for observation to watch for bleeding. Patient's hospitalization was uneventful. Upon discharge, patient notes incisional discomfort with position changes. He denies nausea, vomiting, fever. He is tolerating a regular diet. Weight / BMI Weight Weight: 268 lb 15.423 oz Body Mass Index (BMI) 35.6 ABG / Lab / Microbiology Data 05/14/24 07:09 05/14/24 07:09 Laboratory: Laboratory Results - last 24 hr 05/13/24 09:27: WBC 11.7 H, RBC 5.12, Hgb 15.8, Hct 45.8, MCV 89.5, MCH 30.9, MCHC 34.5, RDW Std Deviation 41.0, RDW Coeff of Mp 12.5, Plt Count 188, MPV 10.8 05/13/24 15:40: Hgb 16.7 H, Hct 47.7 05/14/24 07:09: WBC 14.2 H, RBC 5.03, Hgb 15.6, Hct 45.5, MCV 90.5, MCH 31.0, MCHC 34.3, RDW Std Deviation 40.8, RDW Coeff of Mp 12.3, Plt Count 186, MPV 11.5, Immature Gran % (Auto) 0.400, Neut % (Auto) 75.6 H, Lymph % (Auto) 16.6 L, [place] % (Auto) 7.3, Eos % (Auto) 0.0, Baso % (Auto) 0.1, Absolute Neuts (auto) 10.7 H, Absolute Lymphs (auto) 2.35, Nucleated RBC % 0 Radiography Diagnostic Testing: Radiology Impression Cholangiogram 05/13/24 10:52 IMPRESSION: Normal operative cholangiogram. Electronically Signed: Mario Reyes MD at 11:50 EDT , D/C Instructions Discharge Diet: Light diet - advance as tolerated Call your doctor if your incision/area has: Continuous Slow Oozing, Sudden Increased Bleeding, Increased Pain/ Swelling, Increased Redness, Foul Smelling Discharge and Swelling at the incision site Call your doctor if you observe: Fever of 101 or Higher Suture Line Care: Avoid Pulling/Pushing and Avoid Pinching/Bending Cleanse incision/area with: Soap & Water Please Follow Up With: Jose Coronado MD When: Please contact our office for a 10-14 day follow-up at [phone] Meaningful Use Info Meaningful Use Meaningful Use Diagnoses (Choose all that apply): None applicable Ischemic Stroke Statin Dosing Therapy Reference: STATIN DOSE THERAPY REFERENCE: * Patients > 75 years receive moderate or high dose statin therapy. * Patients 75 years or YOUNGER should receive HIGH intensity statin dose unless contraindicated. You will be required to document reason for non-treatment if statin daily dose does not meet guidelines. HIGH DOSE STATIN THERAPY DAILY Atorvastatin > than or = to 40 mg Rosuvastatin > than or = to 20 mg Amlodipine + Atorvastatin > than or = to 2.5/40 mg Ezetimibe + Simvastatin 10/80 mg Simvastatin 80mg Discharge Plan Admission Admit Date/Time: 05/13/24 12:36 Primary Reason for Your Visit: Chronic cholecystitis with calculus Attending Provider: Jose Coronado Primary Care Provider: Angelika Nicholas Instructions Additional Instructions / Restrictions: Cholecystectomy Diet ? Start light with soups and soft bland foods. You may advance diet as tolerated. Activity ? You may drive in 3 days but not while taking narcotic pain medication. ? I encourage walking. You may go up steps, one at a time. ? Do not swim or use hot tubs for 2 weeks. ? For comfort, you may use warm compresses or ice as needed for 15-20 minutes at a time. Lifting ? You may lift up to 15 pounds for 2 weeks. No strenuous exercise for 4 weeks. Dressings/Incision ? You may shower OVER your plastic dressings ? Do NOT tub bathe for 1 week ? Leave plastic dressings on for 3 days. ? When plastic dressings are removed, you will find steri strips. It is okay to continue showering with them in place, pat them dry. ? You may remove steri-strips after 1 week. We recommend getting them soaking wet for easier removal. Medications ? Anesthesia used during surgery and pain medications may cause constipation. I recommend initiating on the day of surgery a fiber supplement like, Metamucil, Citrucel, FiberCon, Benefiber, or a generic form of these medications. 1 heaping tablespoon in water daily. You may continue to utilize any bowel regimen or oral laxatives that you routinely take. Recommend taking Miralax for constipation as needed. Recommend taking 1 tablespoon mixed into any 8 oz beverage i.e., water, orange juice, etc. ? As long as you are not intolerant to Tylenol, acetaminophen, ibuprofen, Motrin, Advil, Aleve, or similar medications, I would recommend transitioning to these [id number] medicines as soon as possible instead of continued use of narcotic pain medication. Follow up ? You should call [facility] soon after surgery, at [phone] option 1 to make a follow up appointment for 10-14 days after your surgery. Discharge Orders/Prescriptions Prescriptions: New oxycodone 5 mg Tablet 5 mg PO Q6H PRN (Reason: pain) 3 Days Qty: 7 0RF tamsulosin 0.4 mg Capsule 0.4 mg PO QHS Qty: 7 0RF Continued hydrochlorothiazide 12.5 mg capsule 12.5 mg PO QDAY amlodipine 5 mg tablet 5 mg PO QDAY turmeric root extract 500 mg capsule 500 mg PO DAILY Referrals / Follow Up: Angelika Nicholas MD [Primary Care Provider] - Disposition Disposition (needs filled in before D/C Order can be placed): Home, Self Care Charges/Coding Visit Charges Inpatient E&M: 01903 Disch Hosp (no charge; post-op)
[2024-05-14 08:08] LABS: Anion Gap 5 (5-15); BUN 14 mg/dL (7-18); BUN/Creat Ratio 16.4 RATIO (10-20); Calcium,Total 8.7 mg/dL (8.5-10.1); Chloride 104 mmol/L (98-107); Creatinine, Serum 0.86 mg/dL (0.70-1.30); EST Glomerular Filtration Rate 100 mL/min (>60); Est Glom Filt Rate - Afr Amer 121 mL/min (>60); Estimated Creatinine Clearance 135.52 ml/min; Glucose 121 mg/dL (74-106); Potassium 3.8 mmol/L (3.5-5.1); Sodium Level 135 mmol/L (136-145)
[2024-05-14] MEDS: Tamsulosin HCl 0.4 MG Capsule PO (08:35)
--- NOTE | 2024-05-14 12:06 | CASEMGMT ---
Order for DC placed. RN CM to pt room at this time and the pt states that he feels safe going home today with no additional needs. Pt RN at bedside reviewing DC instructions. Pt denies any further questions or concerns.
== END 2024-05-14 12:26 | disposition home or self-care (01) ==
LOC: SDC 13:12 → MS3 05-14 07:52
PROVIDERS: Anesthesiology; Admitting Provider Surgery; PCP Family Medicine; Referring Provider Surgery; Visit Provider Surgery
PROC: (CPT 47610; principal; 2024-05-13 10:15)
DX: K81.2 Acute cholecystitis with chronic cholecystitis (principal); F17.210 Nicotine dependence, cigarettes, uncomplicated; G47.30 Sleep apnea, unspecified; Z79.899 Other long term (current) drug therapy; R12 Heartburn
CPT/HCPCS: 47563; 00790; 74300; 76000; 80048; 85014; 85018; 85025; 85027; 88304; 93005; 94668; 96360; 96361; 99221; 99252; 99406; J7030; J7120; G0378; G0463; J2405

== ENCOUNTER → 2024-06-05 | Outpatient (CLI) | payer BC, SELFPAY ==
--- NOTE | 2024-06-05 18:42 | CT_ITS ---
STUDY: CT ABDOMEN WITH CONTRAST REASON FOR EXAM: Male, 53 years old. c/o pain after cholecystectomy on May 13, 2024.-- Oral and IV contrast RADIATION DOSAGE (If Supplied By Facility): CTDIvol = ( 16.98 ) mGy, DLP = ( 873.32 ) mGycm TECHNIQUE: Transaxial images were obtained post I.V. administration of Oral and amp; IV Gastrografin and amp; 100mL Isovue-370, and oral contrast. Sagittal and coronal images were reconstructed. Individualized dose optimization techniques were used for this CT. COMPARISON: None. FINDINGS: The visualized lung bases are unremarkable. The visualized portions of the heart are within normal limits. There is decreased attenuation of the liver consistent with steatosis. There is a 1.1 cm cyst in the posterior aspect of the right lobe of the liver in its midportion. The patient is status post cholecystectomy. Postsurgical changes are seen in the gallbladder fossa. No abnormal fluid collection is seen. Normal spleen. Normal pancreas. There is symmetric enlargement of the adrenal glands suggesting adrenal hyperplasia. There are small bilateral renal cysts. 2 mm nonobstructive calculus in the lower pole calyx of the left kidney. Normal visualized stomach. Normal small intestine. There are scattered colonic diverticula consistent with diverticulosis. The appendix is visualized and appears normal. There is scattered atherosclerotic calcification of the abdominal aorta, without a demonstrated aneurysm. Normal inferior vena cava. Normal retroperitoneum. Prominent soft tissue density in the subcutaneous tissues deep to the umbilicus most likely secondary to the recent trocar placement for laparoscopic cholecystectomy. Mild degree of disc space narrowing and spondylosis at the L3-L4 level. CT/Abdomen WITH IV Contrast IMPRESSION: Fatty infiltration of the liver. Status post cholecystectomy and postcholecystectomy changes. Small bowel renal cysts. Punctate calculus in the lower pole calyx of the left kidney. Small hepatic cyst. Findings suggestive of bilateral adrenal hyperplasia. Electronically Signed: Gregorio Ibrahim MD at 13:59 EDT ,
== END | disposition home or self-care (01) ==
PROVIDERS: PCP Family Medicine; Referring Provider Surgery; Visit Provider Surgery
DX: R10.9 Unspecified abdominal pain (principal); Z90.49 Acquired absence of other specified parts of digestive tract
CPT/HCPCS: 74160; Q9967

== ENCOUNTER → 2025-01-24 | Outpatient (CLI) | payer BC, SELFPAY ==
[2025-01-24 13:07] LABS: Anion Gap 11 (5-15); BUN 16 mg/dL (4-19); BUN/Creat Ratio 20.4 RATIO (10-20); Calcium,Total 9.2 mg/dL (7.6-11.0); Chloride 104 mmol/L (98-108); Creatinine, Serum 0.77 mg/dL (0.70-1.20); EST Glomerular Filtration Rate 107 (>60); Glucose 84 mg/dL (70-99); PSA,Total - Annual Screen 1.57 ng/mL (0.02-4.00); Potassium 3.6 mmol/L (3.3-5.1); Sodium Level 140 mmol/L (133-145)
[2025-01-24 14:16] LABS: Cholesterol 186 mg/dL (<=200); High Density Lipoprotein 34 mg/dL; Low Density Lipoprotein Calc. 120 mg/dL; Triglycerides 164 mg/dL; Very Low Density Lipoprotein 33 mg/dL (5-40); cholesterol:hdl ratio screen 5.52
[2025-01-24 14:27] LABS: Hemoglobin A1c 5.6 % (<=5.6)
== END | disposition home or self-care (01) ==
LOC: MFPLAB 10:05
PROVIDERS: PCP Family Medicine; Referring Provider Family Medicine; Visit Provider Family Medicine
DX: E66.01 Morbid (severe) obesity due to excess calories (principal); Z12.5 Encounter for screening for malignant neoplasm of prostate; I10 Essential (primary) hypertension
CPT/HCPCS: 36415; 80048; 80061; 83036; 84153; 84443; G0103

== ENCOUNTER → 2025-04-11 | Outpatient (CLI) | payer BC, SELFPAY ==
--- NOTE | 2025-04-11 13:50 | CT_ITS ---
PROCEDURE: ABDOMEN/PELVIS WITH CONTRAST 04/11/2025 REASON FOR EXAM: Right upper quadrant pain for 6 months TECHNIQUE: Abdomen and pelvis CT with intravenous contrast. Coronal and Sagittal reconstruction series were provided. CONTRAST: 100 mL of Isovue 370 One or more dose reduction techniques were used (e.g., Automated exposure control, adjustment of the mA and/or kV according to patient size, use of iterative reconstruction technique. RADIATION DOSE SUMMARY: DLP: 1405 mGycm COMPARISON: 06/05/2024 FINDINGS: Limited sections of the lung bases demonstrate no focal pulmonary mass. The liver, spleen, pancreas, both kidneys, and both adrenal glands demonstrate no acute findings. Stable bilateral adrenal hyperplasia. 1.8 cm cyst within the left kidney. Nonobstructive tiny stone within left kidney. Smaller subcentimeter hypodensities within the bilateral kidneys too small to accurately characterize. Hepatic steatosis. Hepatomegaly measuring up to 18.4 cm. The gallbladder is surgically absent. The stomach is unremarkable. The aorta and IVC demonstrate no acute findings. Mild atherosclerosis of the abdominal vasculature. There is no free air, free fluid or intestinal obstruction. The small bowel loops are not dilated. The appendix is normal. No bowel obstruction. The pelvic structures are intact. There is no solid pelvic mass. Mild urinary bladder wall thickening which may reflect cystitis versus partial nondistention; consider correlation with urinalysis. Mild prostatomegaly with transverse dimension up to 5.1 cm. No acute osseous pathology. CT/Abdomen/Pelvis WITH Contrast IMPRESSION: Mild urinary bladder wall thickening which may reflect cystitis versus partial nondistention; consider correlation with urinalysis. Stable bilateral adrenal hyperplasia. Reading Location: [id number]
== END | disposition home or self-care (01) ==
LOC: CT 13:35
PROVIDERS: PCP Family Medicine; Referring Provider Surgery; Visit Provider Surgery
DX: R10.11 Right upper quadrant pain (principal)
CPT/HCPCS: 74177; Q9967; A4216

== ENCOUNTER 2025-05-06 22:28 | Emergency (ER) | payer BC, SELFPAY ==
[2025-05-06 22:29] VITALS: BP 120/82; PULSE 117; RESP 24; TEMP 37.7; O2SAT 97; BMI 38.4
[2025-05-06 22:30] VITALS: BP 120/82; PULSE 117; RESP 24; TEMP 37.7; O2SAT 97
--- NOTE | 2025-05-06 22:54 | EX.ED.DYSGE1 ---
HPI History of Present Illness Chief Complaint: General Illness Informant: patient Onset/Context/Timing Onset: Yesterday Context: Gradual Onset Timing: Continuous Quality: Aching Location: Frontal Worsened by: Coughing Relieved by: Nothing Narrative Narrative: Patient presents with headache and fevers that began yesterday. Patient states is gradually getting worse. Patient describes his headache as aching. Patient states it is over the frontal area. Patient states it is worse with coughing. Patient states nothing makes it better. Patient states he had a fever up to 104.5 at home. Patient also admits to some rhinorrhea. Patient admits to some urinary urgency but denies any dysuria or hematuria. [facility] Medical History RUQ pain Abdominal pain Heartburn History of edema Smoker CPAP (continuous positive airway pressure) dependence Sleep apnea Home Medications ?Medication ?Instructions ?Recorded ?Last Taken ?Type amlodipine 5 mg tablet 5 mg PO QDAY 05/03/24 Unknown History hydrochlorothiazide 12.5 mg capsule 12.5 mg PO QDAY 05/03/24 Unknown History omeprazole 40 mg capsule,delayed 40 mg PO DAILY #60 caps 04/25/25 Unknown Rx release azithromycin 250 mg tablet 250 mg PO DAILY #4 TABLETS 05/07/25 Unknown Rx Allergy/AdvReac Type Severity Reaction Status Date / Time No Known Allergies Allergy Verified 05/06/25 22:29 Surgical History S/P cholecystectomy History of esophagogastroduodenoscopy (EGD) History of colonoscopy Social History Smoking Status: Current every day smoker tobacco type: cigarettes alcohol intake: never substance use type: does not use ROS ROS ED Constitutional Constitutional ED: Reports chills, fever(s) and sweats Eyes Eyes: Denies blurry vision or change in vision ENT ENT ED: Reports rhinorrhea; Denies sore throat Cardiovascular Cardiovascular: Denies chest pain or palpitations Respiratory/Chest Respiratory/Chest: Reports cough; Denies dyspnea Gastrointestinal Gastrointestinal: Denies nausea or vomiting Genitourinary Genitourinary ED: Reports urinary urgency; Denies dysuria or hematuria Musculoskeletal Musculoskeletal: Reports back pain; Denies neck pain Integumentary Denies abscess or rash Neurologic Neurologic: Reports headache(s); Denies weakness Allergic/Immunologic Allergic/Immunologic ED: Denies mouth swelling or urticaria EXAM Physical Exam Const Vital Signs: 05/06/25 22:29 05/06/25 22:30 05/06/25 22:44 Temperature 99.9 F H 99.9 F H Temperature Source Oral Oral Pulse Rate 117 H 117 H Respiratory Rate 24 H 24 H Respiratory Effort Normal Non-Labored Respiratory Pattern Normal Blood Pressure 120/82 H 120/82 H Blood Pressure Mean 94 94 Pulse Ox 97 97 Oxygen Delivery Method Room Air Room Air 05/06/25 23:30 05/07/25 00:00 05/07/25 01:00 Temperature 99.4 F H 100.2 F H 100.8 F H Temperature Source Oral Oral Oral Pulse Rate 100 93 81 Respiratory Rate 30 H 20 H 16 Respiratory Effort Respiratory Pattern Blood Pressure 124/81 H 114/71 128/84 H Blood Pressure Mean 94 84 98 Pulse Ox 95 97 94 Oxygen Delivery Method Room Air Room Air 05/07/25 02:00 05/07/25 02:13 Temperature 100.7 F H 98.2 F Temperature Source Oral Pulse Rate 108 H 98 Respiratory Rate 18 18 Respiratory Effort Respiratory Pattern Blood Pressure 141/78 H 141/78 H Blood Pressure Mean 99 99 Pulse Ox 96 98 Oxygen Delivery Method Positive well nourished and well developed General Appearance ED: well developed and NAD HEENT Reports moist mucous membranes Neck supple and no JVD Resp normal respiratory effort and clear to auscultation bilaterally Cardio regular rhythm Rate: tachycardic GI non-tender and non-distended Palpation: soft Extremity normal to inspection General Extremety ED: Negative for edema General Extremity: Negative for edema Neuro oriented x3, CN's II-XII intact bilaterally and no sensory deficits noted Sensorium / Orientation: alert Motor Exam: strength 5/5 throughout Psych mental status grossly normal MDM MDM MDM Narrative Medical decision making narrative: Differential diagnosis includes pneumonia, bronchitis, sinusitis, viral upper respiratory infection, urinary tract infection, and dehydration. CBC will be obtained to assess for leukocytosis and anemia. Basic metabolic profile will be obtained to assess for electrolyte abnormality and renal function. Urinalysis will be obtained to assess for urinary tract infection and hematuria. COVID-19, influenza, and RSV PCR will be obtained to assess for viral illness. Chest x-ray will be obtained to assess for pneumonia or bronchitis. History & Record Review Additional record(s) reviewed:: Prior outpatient record and Prior labs Lab Data Attestation: I reviewed the patient's lab results. Lab results narrative: CBC was reviewed and was within normal limits. Basic metabolic profile was reviewed. Glucose was slightly elevated at 140. The remainder is within normal limits. Urinalysis was reviewed. There is no evidence of urinary tract infection or hematuria. COVID-19 PCR was reviewed and was negative. Influenza PCR was reviewed and was negative for influenza A and influenza B. RSV PCR was reviewed and was negative. Labs: Laboratory Results - last 24 hr 05/06/25 05/07/25 23:17 00:47 WBC 6.8 RBC 5.06 Hgb 16.1 Hct 44.1 MCV 87.2 MCH 31.8 MCHC 36.5 H RDW Std Deviation 38.9 RDW Coeff of Mp 12.1 Plt Count 97 L MPV 10.8 Immature Gran % (Auto) 0.600 Neut % (Auto) 80.9 H Lymph % (Auto) 14.0 L [place] % (Auto) 4.0 Eos % (Auto) 0.1 Baso % (Auto) 0.4 Absolute Neuts (auto) 5.5 Absolute Lymphs (auto) 0.95 Nucleated RBC % 0 Differential Comment SCANNED Platelet Estimate SLT DEC RBC Morphology NORM C+C Sodium 134 Potassium 3.3 Chloride 100 Carbon Dioxide 21.0 Anion Gap 13 BUN 15 Creatinine 1.10 Estim Creat Clear Calc 107.56 Est GFR (MDRD) Non-Af 80 BUN/Creatinine Ratio 13.5 Glucose 140 H Calcium 8.6 Urine Color Yellow Urine Clarity Clear Urine pH 6.0 Ur Specific [place] 1.010 Urine Protein 15 H Urine Glucose (UA) Normal Urine Ketones Negative Urine Occult Blood 10 H Urine Nitrite Negative Urine Bilirubin Negative Urine Urobilinogen 4 H Ur Leukocyte Esterase 25 H Urine RBC 0-5 SEEN Urine WBC 0-5 SEEN Ur Squamous Epith Cells 0-5 SEEN Amorphous Sediment 1+ Urine Bacteria 2+ Urine Mucus 0 SEEN Radiography Chest X-Ray - ED: 2 View, Read by ED Physician, Read by Radiologist, Right Infiltrate and Left Infiltrate Diagnostic Testing: Clinical Impression(s) from Imaging Studies Chest X-Ray 05/06/25 23:50 IMPRESSION: Bilateral interstitial opacities could be the result of infection or edema. Reading Location: [id number] and lateral chest x-ray was obtained. There are 2 views. On my independent interpretation, lung cutler showed bilateral interstitial opacities which could be from infection or edema. There is normal cardiac silhouette. Bony thorax is normal. Radiologist also interpreted the x-ray and agrees. Treatment and Re-Evaluation :: Patient was given IV fluids and Tylenol. Patient was advised of his findings. Patient was given a dose of Zithromax here. Patient was complaining of a headache. Patient was given ibuprofen for this. Patient was instructed to drink plenty of fluids. Patient was instructed to continue Tylenol and ibuprofen as needed for any pain or fevers. Patient was instructed to follow-up with his primary care physician in 5 to 7 days. Patient is given a prescription for Zithromax. Patient understood and was agreeable with the plan. All questions were answered. Discharge Plan Triage Chief Complaint: General Illness ED Provider: Patrick Cardona Dx/Rx/DC Orders Clinical Impression: Pneumonia, Headache Instructions: ED Pneumonia (Adult) Prescriptions: New azithromycin 250 mg tablet 250 mg PO DAILY Qty: 4 0RF No Action hydrochlorothiazide 12.5 mg capsule 12.5 mg PO QDAY amlodipine 5 mg tablet 5 mg PO QDAY omeprazole 40 mg capsule,delayed release(DR/EC) 40 mg PO DAILY Qty: 60 1RF Primary Care Provider: Care Physician,No Primary Referrals: [facility] [Outside] - 5-7 Days Care Physician,No Primary [Primary Care Provider] - Print Language: American Disposition Disposition: Home, Self Care
[2025-05-06] MEDS: Acetaminophen 500 MG Tablet 1000 MG PO (23:09)
[2025-05-06] MEDS: 0.9% Normal Saline (1000mL) 1,000 ML 1000 ML IV (23:10)
--- OUTSIDE RECORDS SUMMARY | 2025-05-06 23:21 | XMS RPT_ITS | CCD ---
Author Organization [facility] Care Team Providers Care Water Fitness Instructor Name Role Phone Cristopher DEGROOT, Dr. Angelika Mishra Primary Care Provider Cristopher DEGROOT, Dr. Angelika Mishra Attending Provider Cristopher DEGROOT, Dr. Angelika Mishra Referring Provider Ivonne DEGROOT, Dr. Garcia Attending Provider Ivonne DEGROOT, Dr. Garcia Referring Provider Jolliff, Angelika S Primary Care Unavailable Jose Coronado Attending Unavailable CalabrettaJose Referring Unavailable Calabretta Jose Consulting Unavailable Jolliff, Angelika S Primary Care Unavailable Jolliff, Angelika S Referring Unavailable CalabrettaJose Attending Unavailable CalabrettaJose Attending Unavailable Jolliff, Angelika S Primary Care Unavailable Jolliff, Angelika S Referring Unavailable Jolliff, Angelika S Primary Care Unavailable Byron Michelle Attending Unavailable Calabretta Jose Referring Unavailable Jolliff, Angelika S Primary Care Unavailable Dana Moncada Attending Unavailable EberabrLaury delgadoony Referring Unavailable Calabretta Jose Admitting Unavailable Calabretta Jose Consulting Unavailable Jolliff, Angelika S Referring Unavailable Jolliff, Angelika S Primary Care Unavailable CalabrettaJose Attending Unavailable CalabrettaJose Attending Unavailable Jolliff, Angelika S Referring Unavailable Jolliff, Angelika S Primary Care Unavailable Jolliff, Angelika S Primary Care Unavailable CalabrLaury delgadoony Attending Unavailable Eberabretta, Jose Referring Unavailable Calabretta, Jose Admitting Unavailable CalabrettaJose Attending Unavailable Jolliff, Angelika S Primary Care Unavailable Calabretta, Jose Referring Unavailable Jolliff, Angelika S Primary Care Unavailable Calabrsandy, Jose Referring Unavailable CalabrettaJose Attending Unavailable Jolliff, Angelika S Attending Unavailable Angelika Nicholas Referring Unavailable Angelika Nicholas Primary Care Unavailable Allergies Allergy Classification Reported Allergen(s) Allergy Type Date of Onset Reaction(s) Facility (1 source) Aspirin Drug Allergy 05-03-2024 [facility] Repository Medications Current Medications Medication Drug Class(es) Dates Sig (Normalized) Sig (Original) amLODIPine 5 mg oral tablet (3 sources) Dihydropyridine Calcium Channel Luz Start: 05-03-20 24 take 1 tablet by mouth once daily Amlodipine 5 mg tablet Active 5 mg PO daily May 03, 2024 12:00am hydroCHLOROthiazide 12.5 mg oral capsule (3 sources) Thiazide Diuretic Start: 05-03-20 24 take 1 capsule by mouth once daily Hydrochlorothiazide 12.5 mg capsule Active 12.5 mg PO daily May 03, 2024 12:00am omeprazole 40 mg delayed release oral capsule (1 source) Proton Pump Inhibitor Start: 04-25-20 25 take 1 capsule by mouth once daily Omeprazole 40 mg capsule,delayed release(DR/EC) Active 40 mg PO DAILY 60 April 25, 2025 12:00am tamsulosin hydrochloride 0.4 mg oral capsule (3 sources) alpha-Adrenergic Luz Start: 05-14-20 24 take 1 capsule by mouth at bedtime Tamsulosin 0.4 mg Capsule Active 0.4 mg PO AT BEDTIME May 14, 2024 12:00am Turmeric Root Extract 500 mg capsule (3 sources) Start: 05-03-20 24 take 1 capsule by mouth once daily Turmeric Root Extract 500 mg capsule Active 500 mg PO DAILY May 03, 2024 12:00am Completed/Discontinued Medications Medication Drug Class(es) Dates Sig (Normalized) Sig (Original) oxyCODONE hydrochloride 5 mg oral tablet (3 sources) Opioid Agonist Start: 05-14-2024 End: 03-11-2025 take 1 tablet by mouth every six hours as needed for pain Oxycodone 5 mg Tablet Discontinued 5 mg PO EVERY 6 HOURS as needed for pain 7 May 14, 2024 March 11, 2025 12:45pm Problems Active Problems Problem Classification Problem Date Documented Da te Episodic/Chronic Abdominal pain (8 sources) Right upper quadrant pain; Translations: [Right upper quadrant pain] Onset: 06-20-2024 03-11-2025 Episodic Other nutritional; endocrine; and metabolic disorders (1 source) Morbid (severe) obesity due to excess calories; Translations: [Morbid (severe) obesity due to excess calories] Onset: 02-02-2025 Chronic Past or Other Problems Problem Classification Problem Date Documented Date Episodic/Chronic Biliary tract disease (5 sources) Gallstone; Translations: [Calculus of gallbladder without cholecystitis without obstruction] Onset: 05-24-2024 05-22-2024 Episodic Results Test Name Value Interpretation Reference Range Facility Surgery Visit Reporton 04-25 Surgery Visit Report [facility] [address] [place] [address] OFFICE VISIT Date of Service: 04/25/25 MR#: [id number] Acct: [id number] Name: PHUC PEREZ Rep #: [id number] : 1970 Provider: Dr. Jose valles MD Age/Sex: 54/M Location: [facility] Status: Signed Intake Vital Signs 03/11/25 12:45 Height 6 ft Weight: 287 lb BMI 38.9 BP 152/82 H Blood Pressure Location Rt brachial Position Sitting Respiration 17 Pulse 72 Pulse Source Monitor Temp 97.6 F L Temp Source Temporal Pulse Oximetry (%) 98 Oxygen Delivery Method room air Intake Visit Reasons: REVIEW CT SCAN Chief Complaint: RUQ pain Allergies No Known Allergies Allergy (Verified 05/24/24 12:48) Subjective Details: Patient is here to review his CT scan. Objective Details: Abdomen is soft and nontender Coding Level of Care Code Off vis,est,level 2 Diagnoses RUQ pain R10.11 [facility] Medical History (Updated 03/11/25 @ 12:44 by Mini Keen LPN) RUQ pain Abdominal pain Heartburn History of edema Smoker CPAP (continuous positive airway pressure) dependence Sleep apnea Surgical History S/P cholecystectomy History of esophagogastroduodenoscopy (EGD) History of colonoscopy Social History Smoking Status: Current every day smoker tobacco type: cigarettes alcohol intake: never substance use type: does not use Assessment and Plan (No Qualifiers) Assessment and Plan (1) RUQ pain: Status: Acute Plan: I had the patient come back to discuss his CT scan with him. There is no sign of port site hernia or abnormalities around where the gallbladder was. The patient may be having duodenitis or gastric ulcer so I will start him on a PPI and follow-up with him in 1 month to see if this is helping. Jose Coronado MD Pager: [facility] [address] [place] [address], [address] [place] [address] Office: 04/25/25 6753 Date [facility] Date (if applicable) CC: Normal [facility] Abdomen/Pelvis WITH Contrast on 04-11-2025 Abdomen/Pelvis WITH Contrast [facility] Imaging Services [address] [place] [address] [id number] Abdomen/Pelvis WITH Contrast MR#: [id number] Acct: [id number] Name: PHUC PEREZ Rep #: [id number] : 1970 M 54 From: Tamiko Harding PCP: Dr. Angelika Nicholas MD Status: REG CLI Study: Abdomen/Pelvis WITH Contrast Date of Exam: Exam# [id number] Ordering Dr: Jose Coronado PROCEDURE: ABDOMEN/PELVIS WITH CONTRAST 04/11/2025 REASON FOR EXAM: Right upper quadrant pain for 6 months TECHNIQUE: Abdomen and pelvis CT with intravenous contrast. Coronal and Sagittal reconstruction series were provided. CONTRAST: 100 mL of Isovue 370 One or more dose reduction techniques were used (e.g., Automated exposure control, adjustment of the mA and/or kV according to patient size, use of iterative reconstruction technique. RADIATION DOSE SUMMARY: DLP: 1405 mGycm COMPARISON: 06/05/2024 FINDINGS: Limited sections of the lung bases demonstrate no focal pulmonary mass. The liver, spleen, pancreas, both kidneys, and both adrenal glands demonstrate no acute findings. Stable bilateral adrenal hyperplasia. 1.8 cm cyst within the left kidney. Nonobstructive tiny stone within left kidney. Smaller subcentimeter hypodensities within the bilateral kidneys too small to accurately characterize. Hepatic steatosis. Hepatomegaly measuring up to 18.4 cm. The gallbladder is surgically absent. The stomach is unremarkable. The aorta and IVC demonstrate no acute findings. Mild atherosclerosis of the abdominal vasculature. There is no free air, free fluid or intestinal obstruction. The small bowel loops are not dilated. The appendix is normal. No bowel obstruction. The pelvic structures are intact. There is no solid pelvic mass. Mild urinary bladder wall thickening which may reflect cystitis versus partial nondistention; consider correlation with urinalysis. Mild prostatomegaly with transverse dimension up to 5.1 cm. No acute osseous pathology. CT/Abdomen/Pelvis WITH Contrast IMPRESSION: Mild urinary bladder wall thickening which may reflect cystitis versus partial nondistention; consider correlation with urinalysis. Stable bilateral adrenal hyperplasia. Reading Location: [facility] CC: Dr. Angelika Nicholas MD; Dr. Jose Coronado MD Radio Producer: Signed Normal [facility] Surgery Visit Reporton 03-11 Surgery Visit Report [facility] [address] [place] [address] OFFICE VISIT Date of Service: 03/11/25 MR#: [id number] Acct: [id number] Name: PHUC PEREZ Rep #: [id number] : 1970 Provider: Dr. Jose valles MD Age/Sex: 54/M Location: [facility] Status: Signed Intake Vital Signs 05/13/24 15:39 03/11/25 12:45 Height 6 ft 0.83 in 6 ft Weight: 287 lb BMI 38.9 BP 152/82 H Blood Pressure Location Rt brachial Position Sitting Respiration 17 Pulse 72 Pulse Source Monitor Temp 97.6 F L Temp Source Temporal Pulse Oximetry (%) 98 Oxygen Delivery Method room air Intake Visit Reasons: RUQ PAIN Chief Complaint: RUQ pain Accompanied by: Is patient in pain?: Yes (RUQ ) Allergies No Known Allergies Allergy (Verified 05/24/24 12:48) Medications ???Medication ???Instructions ???Recorded ???Confirmed ???Type amlodipine 5 mg tablet 5 mg PO QDAY 05/03/24 03/11/25 His tory hydrochlorothiazide 12.5 mg capsule 12.5 mg PO QDAY 05/03/24 History turmeric root extract 500 mg 500 mg PO DAILY 05/03/24 03/11/25 History capsule tamsulosin 0.4 mg capsule 0.4 mg PO QHS #7 caps 05/14/24 Rx PFSH Medical History (Updated 03/11/25 @ 12:44 by Mini Keen LPN) RUQ pain Abdominal pain Heartburn History of edema Smoker CPAP (continuous positive airway pressure) dependence Sleep apnea Surgical History S/P cholecystectomy History of esophagogastroduodenoscopy (EGD) History of colonoscopy Social History Smoking Status: Current every day smoker tobacco type: cigarettes alcohol intake: never substance use type: does not use HPI HPI HPI: The patient is a 54-year-old male who had a cholecystectomy about a year ago. He reports that since then his pain has persisted. He is still having right upper quadrant pain especially with palpation of the area. ROS General General: No weight change, appetite, fatigue, colon cancer, breast cancer or weakness HEENT HEENT: No difficulty swallowing, eye injury, eye surgery, swollen glands or hoarseness Endo Endocrine: No thyroid disease, diabetes mellitus, thyroid cancer, Hair loss, heat intolerance or cold intolerance Skin Skin: No rash or changing moles Musc Musculoskeletal: No back problems, arthritis, rheumatoid arthritis, gout or joint pain Cardio Cardiovascular: Yes high blood pressure; No murmur, pacemaker, heart disease, atrial fibrillation, heart attack, heart stent, palpitations, shortness of breath with exertion or chest pain Psych Psychiatric: No depression, anxiety or hearing voices Resp Respiratory: No shortness of breath, Yes sleep apnea, No cough, No COPD, No asthma, No emphysema and No wheezing Gastro Gastrointestinal: Yes abdominal pain (RUQ), No nausea or vomiting, No diarrhea, No constipation, No blood in stool, No acid reflux, No hemorrhoids, No ulcers, Yes gallbladder problem and No black,tarry stools Dileep Hematologic: Yes blood thinners, No blood disorders, No bleeding, No anemia and No blood clots Additional Details: fish oil Neuro Neurologic: No numbness, No tingling and No weakness Exam Const General: cooperative Orientation: alert and oriented x3 HENMT Head: normal to inspection Neck Neck: normal visual inspection and full ROM Chest Chest palpation inspection: normal inspection of the chest Resp Effort Inspection: normal respiratory effort Auscultation: clear to auscultation bilaterally Cardio Rate: regular rate Rhythm: regular rhythm GI Inspection: non-distended Palpation: soft and nontender Skin General: no rashes or lesions noted Neuro General: patient alert and patient oriented x3 Extrem General: full ROM Psych Appearance: grossly normal Mental Status: mental status grossly normal Assessment and Plan Assessment and Plan (1) RUQ pain: Status: Acute Plan: The patient is still having right upper quadrant pain a year after surgery. I would like to obtain a CT scan as the first part of the workup to see if anything is objectively abnormal. Jose Coronado MD Pager: [facility] [address] [place] [address], [address] [place] [address] Office: Orders: Orders Abdomen/Pelvis WITH Contrast 03/11/25 R10.11 - Right upper quadrant pain Coding Level of Care Code Off vis,est,level 3 Diagnoses RUQ pain R10.11 03/12/25 0752 Date Jose Coronado MD Cosigner Signature: Date ( (more content not included)... Normal [facility] Anion gap in Serum or Plasma Ordered By: Angelika Nicholas on 01-24-2025 Anion gap [Moles/Vol] 11 mmol/L 5-15 [facility] BUN/creatinine ratioOrdered By: Angelika Nicholas on 01-24-2025 Urea nitrogen/Creatinine [Mass ratio] 20.4 mg/mg High 10-20 [facility] Basic Metabolic Profile (BMP )on 01-24-2025 BUN/CRE 20.4 RATIO High - [facility] Comment on above: Order Comment: Order Date: 04/12/24Order Info: 666- - BMPOrder Info: [id number] - LIPIDOrder Info: [id number] - PSA Performed By: #### L 500.2500, L501.9910, L500.4100 ####[facility] [address] [place], [address] Calcium [Mass/Vol] 9.2 mg/dL Normal 7.6-11.0 [facility] Comment on above: Order Comment: Order Date: 04/12/24Order Info: 06- - BMPOrder Info: [id number] - LIPIDOrder Info: [id number] - PSA Performed By: #### L 500.2500, L501.9910, L500.4100 ####[facility] [address] [place], [address] Chloride [Moles/Vol] 104 mmol/L Normal 98-108 [facility] Comment on above: Order Comment: Order Date: 04/12/24Order Info: 06- - BMPOrder Info: [id number] - LIPIDOrder Info: [id number] - PSA Performed By: #### L 500.2500, L501.9910, L500.4100 ####[facility] [address] [place], [address] CO2 [Moles/Vol] 25.0 mmol/L Normal 21.0-32.0 [facility] Comment on above: Order Comment: Order Date: 04/12/24Order Info: [id number] - BMPOrder Info: [id number] - LIPIDOrder Info: [id number] - PSA Performed By: #### L 500.2500, L501.9910, L500.4100 ####[facility] [address] [place], [address] Creatinine [Mass/Vol] 0.77 mg/dL Normal 0.70-1.20 [facility] Comment on above: Order Comment: Order Date: 04/12/24Order Info: [id number] - BMPOrder Info: [id number] - LIPIDOrder Info: [id number] - PSA Performed By: #### L 500.2500, L501.9910, L500.4100 ####[facility] [address] [place], [address] GAP 11 Normal 5-15 [facility] Comment on above: Order Comment: Order Date: 04/12/24Order Info: [id number] - BMPOrder Info: - LIPIDOrder Info: 1 - PSA Performed By: #### L 500.2500, L501.9910, L500.4100 ####[facility] [address] [place], [address] GFR/1.73 sq M.predicted among non-blacks MDRD (S/P/Bld) [Vol rate/Area] 107 mL/min/{1.73_m2} Normal >60 [facility] Comment on above: Order Comment: Order Date: 04/12/24Order Info: [id number] - BMPOrder Info: [id number] - LIPIDOrder Info: [id number] - PSA Result Comment: mL/m in/1.73m2 CKD-EPI Creatinine Equation (2020) Performed By: #### L 500.2500, L501.9910, L500.4100 ####[facility] [address] [place], [address] Glucose [Mass/Vol] 84 mg/dL Normal 70-99 [facility] Comment on above: Order Comment: Order Date: 04/12/24Order Info: [id number] - BMPOrder Info: [id number] - LIPIDOrder Info: [id number] - PSA Performed By: #### L 500.2500, L501.9910, L500.4100 ####[facility] [address] [place], [address] Potassium [Moles/Vol] 3.6 mmol/L Normal 3.3-5.1 [facility] Comment on above: Order Comment: Order Date: 04/12/24Order Info: [id number] - BMPOrder Info: [id number] - LIPIDOrder Info: [id number] - PSA Performed By: #### L 500.2500, L501.9910, L500.4100 ####[facility] [address] [place], [address] Sodium [Moles/Vol] 140 mmol/L Normal 133-145 [facility] Comment on above: Order Comment: Order Date: 04/12/24Order Info: [id number] - BMPOrder Info: [id number] - LIPIDOrder Info: [id number] - PSA Performed By: #### L 500.2500, L501.9910, L500.4100 ####[facility] [address] [place], [address] Urea nitrogen [Mass/Vol] 16 mg/dL Normal 4-19 [facility] Comment on above: Order Comment: Order Date: 04/12/24Order Info: [id number] - BMPOrder Info: [id number] - LIPIDOrder Info: [id number] - PSA Performed By: #### L 500.2500, L501.9910, L500.4100 ####[facility] [address] [place], [address] Calculated very low density lipoprotein (VLDL) cholesterol measurementOrdered By: Angelika Nicholas on 01-24-2025 Calculated very low density lipoprotein (VLDL) cholesterol measurement 33 mg/dL 5-40 [facility] VLDL Cholesterol 33 mg/dL -40 [facility] Carbon dioxide, total [Moles /volume] in Central venous bloodOrdered By: Angelika Nicholas on 01-24-2025 CO2 [Moles/Vol] 25.0 mmol/L 21.0-32.0 [facility] Chloride assayOrdered By: Elías Nicholas on 01-24-2025 Chloride [Moles/Vol] 104 mmol/L 98-108 [facility] GFR/1.73 sq M.predicted gonzález g non-blacks MDRD (S/P/Bld) [Vol rate/Area]Ordered By: Angelika Nicholas on 01-24-2025 Estimated GFR (MDRD) Non-Af Amer 107 >60 [facility] Comment on above: mL/min/1.73m2 CKD-EP I Creatinine Equation (2020) Glomerular filtration rate ( GFR) estimation/1.73 sq m using serum, plasma, or whole bOrdered By: Angelika Nicholas on 01-24-2025 GFR/1.73 sq M.predicted among non-blacks MDRD (S/P/Bld) [Vol rate/Area] 107 mL/min/{1.73_m2} >60 [facility] Comment on above: mL/min/1.73m2 CKD-EP I Creatinine Equation (2020) Hemoglobin A1con 01-24-2025 HbA1c (Bld) [Mass fraction] 5.6 % Low <=5.6 [facility] Comment on above: Performed By: #### L 501.9520, L501.9985 #### [facility], [address] Hemoglobin A1c percentageOrd ered By: Angelika Nicholas on 01-24-2025 HbA1c (Bld) [Mass fraction] 5.6 % Low >5.7 [facility] LDL calc ser/plasOrdered By: Angelika Nicholas on 01-24-2025 Cholesterol in LDL [Mass/Vol] 120 mg/dL [facility] Comment on above: Jjjuibqdru=001-420 m g/dL & Higher Foua=814 mg/dL or greater LDL Cholesterol, Calculated 120 mg/dL [facility] Comment on above: Vyyldjoily=485-870 m g/dL & Higher Zfie=268 mg/dL or greater Lipid Profileon 01-24-2025 CHOL:HDL 5.52 Normal [facility] Comment on above: Order Comment: Order Date: 04/12/24Order Info: [id number] - BMPOrder Info: - LIPIDOrder Info: [id number] - PSA Performed By: #### L 500.2500, L501.9910, L500.4100 ####[facility] [address] [place], [address] Cholesterol [Mass/Vol] 186 mg/dL Normal <=200 [facility] Comment on above: Order Comment: Order Date: 04/12/24Order Info: [id number] - BMPOrder Info: - LIPIDOrder Info: [id number] - PSA Result Comment: Chol esterol level, Desirable <200 mg/dL Borderline high cholesterol 200-239 mg/dL High cholesterol >=240 mg/dL Recommendations of the NCEP Adult Treatment Panel for the following risk-cutoff thresholds for the [place] population. Performed By: #### L 500.2500, L501.9910, L500.4100 ####[facility] [address] [place], [address] Cholesterol in HDL [Mass/Vol] 34 mg/dL Low [facility] Comment on above: Order Comment: Order Date: 04/12/24Order Info: [id number] - BMPOrder Info: - LIPIDOrder Info: [id number] - PSA Result Comment: Lgoria onal Cholesterol Education Program (NCEP) guidelines: <40 mg/dL: Low HDL-cholesterol (major risk factor for CHD) >= 60 mg/dL: High HDL-cholesterol (negative risk factor for CHD) HDL-cholesterol is affected by a number of factors, e.g. smoking, exercise, hormones, sex and age. Performed By: #### L 500.2500, L501.9910, L500.4100 ####[facility] [address] [place], [address] Cholesterol in LDL [Mass/Vol] 120 mg/dL Normal [facility] Comment on above: Order Comment: Order Date: 04/12/24Order Info: [id number] - BMPOrder Info: [id number] - LIPIDOrder Info: [id number] - PSA Result Comment: Bord qxbbwh=382-739 mg/dL Higher Xcsd=514 mg/dL or greater Performed By: #### L 500.2500, L501.9910, L500.4100 ####[facility] [address] [place], [address] Cholesterol in VLDL [Mass/Vol] 33 mg/dL Normal 5-40 [facility] Comment on above: Order Comment: Order Date: 04/12/24Order Info: [id number] - BMPOrder Info: [id number] - LIPIDOrder Info: [id number] - PSA Performed By: #### L 500.2500, L501.9910, L500.4100 ####[facility] [address] [place], [address] Triglyceride [Mass/Vol] 164 mg/dL Normal [facility] Comment on above: Order Comment: Order Date: 04/12/24Order Info: [id number] - BMPOrder Info: [id number] - LIPIDOrder Info: [id number] - PSA Result Comment: The drugs N-Acetylcysteine and Metamizole may falsely depress this assay. Normal range: <150 mg/dL Borderline High: 150-199 mg/dL High: 200-499 mg/dL Very High: >500 mg/dL Performed By: #### L 500.2500, L501.9910, L500.4100 ####[facility] [address] [place], [address] PSA, total screeningOrdered By: Angelika Nicholas on 01-24-2025 Prostate Specific Antigen Screen 1.57 ng/mL 0.02-4.00 [facility] Comment on above: This test was perfor med using the [employer] tPSA method. Measured values of a patient sample can vary depending on the testing procedure used. PSA values determined on patient samples by different testing procedures cannot be used interchangeably. If there is a change in PSA assays while monitoring therapy, sequential testing should be performed to confirm baseline values. PSA,Total - Annual Screenon 01-24-2025 PSA,TOT SCREEN 1.57 ng/mL Normal 0.02-4.00 [facility] Comment on above: Order Comment: Order Date: 04/12/24Order Info: [id number] - BMPOrder Info: [id number] - LIPIDOrder Info: [id number] - PSA Result Comment: This test was performed using the [employer] tPSA method. Measured values of a patient??sample can vary depending on the testing procedure used. PSA values determined on patient samples by different testing procedures cannot be used interchangeably. If there is a change in PSA assays while monitoring therapy, sequential testing should be performed to confirm baseline values. Performed By: #### L 500.2500, L501.9910, L500.4100 ####[facility] [address] [place], [address] Potassium (Unsp spec) [Mass/ Vol]Ordered By: Angelika Nicholas on 01-24-2025 Potassium [Moles/Vol] 3.6 mmol/L 3.3-5.1 [facility] Potassium measurement (mass/ volume)Ordered By: Angelika Nicholas on 01-24-2025 Potassium (Unsp spec) [Mass/Vol] 3.6 mmol/L 3.3-5.1 [facility] Screening total cholesterol/ high density lipoprotein (HDL) cholesterol ratioOrdered By: Angelika Nicholas on 01-24-2025 Cholesterol.total/Ch olesterol in HDL [Mass ratio] 5.52 {ratio} [facility] Serum creatinine measurement (mass/volume)Ordered By: Angelika Nicholas on 01-24-2025 Creatinine [Mass/Vol] 0.77 mg/dL 0.70-1.20 [facility] Serum glucose measurement (m ass/volume)Ordered By: Angelika Nicholas on 01-24-2025 Glucose [Mass/Vol] 84 mg/dL 70-99 [facility] Serum or plasma calcium aga urement (mass/volume)Ordered By: Angelika Nicholas on 01-24-2025 Calcium [Mass/Vol] 9.2 mg/dL 7.6-11.0 [facility] Serum or plasma cholesterol in HDL measurement (mass/volume)Ordered By: Angelika Nicholas on 01-24-2025 Cholesterol in HDL [Mass/Vol] 34 mg/dL Low >40 [facility] Comment on above: National Cholesterol Education Program (NCEP) guidelines:<40 mg/dL: Low HDL-cholesterol (major risk factor for CHD)>= 60 mg/dL: High HDL-cholesterol (negative risk factor for CHD)HDL-cholesterol is affected by a number of factors, e.g. smoking, exercise, hormones, sex and age. Serum or plasma cholesterol measurement (mass/volume)Ordered By: Angelika Nicholas on 01-24-2025 Cholesterol [Mass/Vol] 186 mg/dL <201 [facility] Comment on above: Cholesterol level, D esirable <200 mg/dLBorderline high cholesterol 200-239 mg/dLHigh cholesterol >=240 mg/dLRecommendations of the NCEP Adult Treatment Panel for the following risk-cutoff thresholds for the [place] population. Serum or plasma urea nitroge n measurement (mass/volume)Ordered By: Angelika Nicholas on 01-24-2025 Urea nitrogen [Mass/Vol] 16 mg/dL 4-19 [facility] Sodium levelOrdered By: Angelika Nicholas on 01-24-2025 Sodium [Moles/Vol] 140 mmol/L 133-145 [facility] TSH DL <= 0.005 mIU/L QnOrde red By: Angelika Nicholas on 01-24-2025 Thyroid Stimulating Hormone (TSH) 1.160 uIU/mL 0.300-4.200 [facility] TSH Qn 1.160 uIU/mL 0.300-4.200 [facility] Thyroid Stim Hormone (TSH)on 01-24-2025 TSH 1.160 uIU/mL Normal 0.300-4.200 [facility] Comment on above: Order Comment: Order Date: 04/12/24 Order Info: [id number] - BMP Order Info: [id number] - LIPID Order Info: [id number] - PSA Performed By: #### L 501.9520, L501.9985 #### [facility] Laboratory [facility] [address] [place], [place], [address] Triglycerides measurementOrd ered By: Angelika Nicholas on 01-24-2025 Triglyceride [Mass/Vol] 164 mg/dL <199 [facility] Comment on above: The drugs N-Acetylcy steine and Metamizole may falsely depress this assay. Normal range: <150 mg/dLBorderline High: 150-199 mg/dLHigh: 200-499 mg/dLVery High: >500 mg/dL Abdomen WITH IV Contraston 0 06-05-2024 Abdomen WITH IV Contrast [facility] Imaging Services [address] [address] Abdomen WITH IV Contrast MR#: [id number] Acct: [id number] Name: PHUC PEREZ Rep #: [id number] : 1970 M 53 From: Gregorio barr MD PCP: Dr. Angelika Nicholas MD Status: [facility] Study: Abdomen WITH IV Contrast Date of Exam: 4 Exam# [id number] Ordering Dr: Jose Coronado :[id number] STUDY: CT ABDOMEN WITH CONTRAST REASON FOR EXAM: Male, 53 years old. c/o pain after cholecystectomy on May 13, 2024.-- Oral and IV contrast RADIATION DOSAGE (If Supplied By Facility): CTDIvol = ( 16.98 ) mGy, DLP = ( 873.32 ) mGycm TECHNIQUE: Transaxial images were obtained post I.V. administration of Oral and amp; IV Gastrografin and amp; 100mL Isovue-370, and oral contrast. Sagittal and coronal images were reconstructed. Individualized dose optimization techniques were used for this CT. COMPARISON: None. FINDINGS: The visualized lung bases are unremarkable. The visualized portions of the heart are within normal limits. There is decreased attenuation of the liver consistent with steatosis. There is a 1.1 cm cyst in the posterior aspect of the right lobe of the liver in its midportion. The patient is status post cholecystectomy. Postsurgical changes are seen in the gallbladder fossa. No abnormal fluid collection is seen. Normal spleen. Normal pancreas. There is symmetric enlargement of the adrenal glands suggesting adrenal hyperplasia. There are small bilateral renal cysts. 2 mm nonobstructive calculus in the lower pole calyx of the left kidney. Normal visualized stomach. Normal small intestine. There are scattered colonic diverticula consistent with diverticulosis. The appendix is visualized and appears normal. There is scattered atherosclerotic calcification of the abdominal aorta, without a demonstrated aneurysm. Normal inferior vena cava. Normal retroperitoneum. Prominent soft tissue density in the subcutaneous tissues deep to the umbilicus most likely secondary to the recent trocar placement for laparoscopic cholecystectomy. Mild degree of disc space narrowing and spondylosis at the L3-L4 level. CT/Abdomen WITH IV Contrast IMPRESSION: Fatty infiltration of the liver. Status post cholecystectomy and postcholecystectomy changes. Small bowel renal cysts. Punctate calculus in the lower pole calyx of the left kidney. Small hepatic cyst. Findings suggestive of bilateral adrenal hyperplasia. Electronically Signed: Gregorio Ibrahim MD at 13:59 EDT Reading Location ID and State: [facility] / [place] , Service support , CC: Dr. Angelika Nicholas MD; Dr. Jose Coronado MD Radio Producer: Signed Normal [facility] Surgery Visit Reporton 05-24 Surgery Visit Report [facility] [address] [place] [address]. [address] [place] [address] OFFICE VISIT Date of Service: 05/24/24 MR#: [id number] Acct: [id number] Name: PEREZPHUC Rep #: [id number] : 1970 Provider: Dr. Jose valles MD Age/Sex: 53/M Location: [facility] Status: Signed Intake Vital Signs 05/13/24 15:39 Height 6 ft 0.83 in Intake Visit Reasons: 2 weeks post op Chief Complaint: 2 weeks post op Is patient in pain?: No Allergies No Known Allergies Allergy (Verified 05/24/24 12:48) Medications ???Medication ???Instructions ???Recorded ???Confirmed ???Type amlodipine 5 mg tablet 5 mg PO QDAY 05/03/24 05/24/24 History hydrochlorothiazide 12.5 mg capsule 12.5 mg PO QDAY 05/03/24 05/24/24 History turmeric root extract 500 mg 500 mg PO DAILY 05/03/24 05/24/24 History capsule oxycodone 5 mg tablet 5 mg PO Q6H PRN pain 3 days #7 tabs 05/14/24 05/24/24 Rx tamsulosin 0.4 mg capsule 0.4 mg PO QHS #7 caps 05/14/24 05/24/24 Rx Subjective Details: The patient reports that he has been having right upper quadrant pain since surgery. He says has been constant for the last week. Says he does feel like he was having some low-grade fevers but did not check himself. Denies nausea or vomiting. Objective Details: Abdomen is soft. It is tender in the right upper quadrant. Incisions are healing well. Coding Level of Care Code Global Post Op Diagnoses S/P cholecystectomy Z90.49 [facility] Medical History (Updated 05/22/24 @ 00:02 by Krissy Betancourt) Heartburn History of edema Smoker CPAP (continuous positive airway pressure) dependence Sleep apnea Surgical History (Updated 05/24/24 @ 12:49 by Vianca Lofton) S/P cholecystectomy History of esophagogastroduodenoscopy (EGD) History of colonoscopy Social History Smoking Status: Current every day smoker tobacco type: cigarettes alcohol intake: never substance use type: does not use Assessment and Plan (No Qualifiers) Assessment and Plan (1) S/P cholecystectomy: Status: Acute Plan: Patient is status postcholecystectomy for acute cholecystitis. He did have a very inflamed gallbladder and his right upper quadrant is still hurting. I will order a CT scan to evaluate for postoperative abscess. Jose Coronado MD Pager: [facility] [address] [place] [address], [address] [place] [phone] Office: 05/24/24 1310 Date Jose Klein Signature: Date (if applicable) CC: Normal [facility] Basic Metabolic Profile (BMP )on 05-14-2024 BUN/CRE 16.4 RATIO Normal 10-20 [facility] Comment on above: Performed By: #### L 500.2500, L100.0100 ####[facility] [address] [place], [address] CA,Total 8.7 mg/dL Normal 8.5-10.1 [facility] Comment on above: Performed By: #### L 500.2500, L100.0100 ####[facility] [address] [place], [address] Chloride [Moles/Vol] 104 mmol/L Normal 98-107 [facility] Comment on above: Performed By: #### L 500.2500, L100.0100 ####[facility] [address] [place], [address] CO2 [Moles/Vol] 26.0 mmol/L Normal 21.0-32.0 [facility] Comment on above: Performed By: #### L 500.2500, L100.0100 ####[facility] [address] [place], [address] Creatinine [Mass/Vol] 0.86 mg/dL Normal 0.70-1.30 [facility] Comment on above: Result Comment: The validity of the calculated GFR GFRAA in patients over 70 years has not been determined. Clinical correlation is essential. Performed By: #### L 500.2500, L100.0100 ####[facility] [address] [place], [address] ECRCL 135.52 ml/min Normal [facility] Comment on above: Performed By: #### L 500.2500, L100.0100 ####[facility] [address] [place], [address] EST GFR - AA 121 mL/min Normal >60 [facility] Comment on above: Result Comment: Afri can [place] GFR Calc Performed By: #### L 500.2500, L100.0100 ####[facility] [address] [place], [address] GAP 5 Normal 5-15 [facility] Comment on above: Performed By: #### L 500.2500, L100.0100 ####[facility] [address] [place], [address] GFR/1.73 sq M.predicted among non-blacks MDRD (S/P/Bld) [Vol rate/Area] 100 mL/min/{1.73_m2} Normal >60 [facility] Comment on above: Result Comment: Non- GFR Calc Performed By: #### L 500.2500, L100.0100 ####[facility] [address] [place], [address] Glucose [Mass/Vol] 121 mg/dL High 74-106 [facility] Comment on above: Result Comment: Fast ing Glucose result from 100 to 125 mg/dL suggests IMPAIRED HOMEOSTASIS per A.D.A. criteria. Performed By: #### L 500.2500, L100.0100 ####[facility] [address] [place], [address] Potassium [Moles/Vol] 3.8 mmol/L Normal 3.5-5.1 [facility] Comment on above: Performed By: #### L 500.2500, L100.0100 ####[facility] [address] [place], [address] Sodium [Moles/Vol] 135 mmol/L Low 136-145 [facility] Comment on above: Performed By: #### L 500.2500, L100.0100 ####[facility] [address] [place], [address] Urea nitrogen [Mass/Vol] 14 mg/dL Normal 7-18 [facility] Comment on above: Performed By: #### L 500.2500, L100.0100 ####[facility] [address] [place], [address] CBC W/Diff, Automatedon 07-0 2-2024 Absolute Lymph 2.35 X10 3/uL Normal 0.83-4.51 [facility] Comment on above: Performed By: #### L 500.2500, L100.0100 ####[facility] [address] [place], [address] Absolute Neut 10.7 X10 3/uL High 2.0-7.7 [facility] Comment on above: Performed By: #### L 500.2500, L100.0100 ####[facility] [address] [place], [address] Basophils/100 WBC (Bld) 0.1 % Normal 0-1 [facility] Comment on above: Performed By: #### L 500.2500, L100.0100 ####[facility] [address] [place], [address] Eosinophils/100 WBC (Bld) 0.0 % Normal 0-5 [facility] Comment on above: Performed By: #### L 500.2500, L100.0100 ####[facility] [address] [place], [address] Erythrocyte distribution width (RBC) [Ratio] 12.3 % Normal 11.6-14.6 [facility] Comment on above: Performed By: #### L 500.2500, L100.0100 ####[facility] [address] [place], [address] Hematocrit (Bld) [Volume fraction] 45.5 % Normal 40-54 [facility] Comment on above: Performed By: #### L 500.2500, L100.0100 ####[facility] [address] [place], [address] Hemoglobin (Bld) [Mass/Vol] 15.6 g/dL Normal 13.0-16.5 [facility] Comment on above: Performed By: #### L 500.2500, L100.0100 ####[facility] [address] [place], [address] IG% 0.400 Normal 0.0-0.9 [facility] Comment on above: Result Comment: IG% - Immature Granulocytes (promyelocytes, myelocytes and metamyelocytes) > 1% indicates that a LEFT SHIFT is Present. Performed By: #### L 500.2500, L100.0100 ####[facility] [address] [place], [address] Lymphocytes/100 WBC (Bld) 16.6 % Low 19-41 [facility] Comment on above: Performed By: #### L 500.2500, L100.0100 ####[facility] [address] [place], [address] MCH (RBC) [Entitic mass] 31.0 pg Normal 27.0-32.0 [facility] Comment on above: Performed By: #### L 500.2500, L100.0100 ####[facility] [address] [place], [address] MCHC (RBC) [Mass/Vol] 34.3 g/dL Normal 32-36 [facility] Comment on above: Performed By: #### L 500.2500, L100.0100 ####[facility] [address] [place], [address] MCV (RBC) [Entitic vol] 90.5 fL Normal 80-94 [facility] Comment on above: Performed By: #### L 500.2500, L100.0100 ####[facility] [address] [place], [address] Monocytes/100 WBC (Bld) 7.3 % Normal 0-10 [facility] Comment on above: Performed By: #### L 500.2500, L100.0100 ####[facility] [address] [place], [address] Neutrophils/100 WBC (Bld) 75.6 % High 47-70 [facility] Comment on above: Performed By: #### L 500.2500, L100.0100 ####[facility] [address] [place], [address] Nucleated RBC (Bld) [#/Vol] 0 10*3/uL Normal 0-5 [facility] Comment on above: Performed By: #### L 500.2500, L100.0100 ####[facility] [address] [place], [address] Platelet mean volume (Bld) [Entitic vol] 11.5 fL Normal 6.2-12.0 [facility] Comment on above: Performed By: #### L 500.2500, L100.0100 ####[facility] [address] [place], [address] Platelets (Bld) [#/Vol] 186 10*3/uL Normal 150-450 [facility] Comment on above: Performed By: #### L 500.2500, L100.0100 ####[facility] [address] [place], [address] RBC (Bld) [#/Vol] 5.03 10*6/uL Normal 4.6-6.2 [facility] Comment on above: Performed By: #### L 500.2500, L100.0100 ####[facility] [address] [place], [address] RDW SD 40.8 fl Normal 35.1-43.9 [facility] Comment on above: Performed By: #### L 500.2500, L100.0100 ####[facility] [address] [place], [address] WBC (Bld) [#/Vol] 14.2 10*3/uL High 4.4-11.0 [facility] Comment on above: Performed By: #### L 500.2500, L100.0100 ####[facility] [address] [facility] [place], [address] Discharge Instructionon 070 Discharge Instruction [facility] Medical Records Department [address] [place] [address] Instructions for Home/Discharge Instructions 05/14/24 0752 MR#: [id number] Acct: [id number] Name: PHUC PEREZ Rep #: [id number] : 1970 53 From: Dana VU PA-C PCP: Dr. Angelika Nicholas MD Status:ADM LISSETH Discharge Instructions Diet Discharge Diet: Light diet - advance as tolerated Activity Discharge Activity: May Not Drive (for 3 days or while taking narcotic pain medications) Lifting Restrictions: No lifting greater than 15 pounds for 2 weeks Dressing / Incision Call your doctor if your incision/area has: Continuous Slow Oozing, Sudden Increased Bleeding, Increased Pain/ Swelling, Increased Redness, Foul Smelling Discharge and Swelling at the incision site Call your doctor if you observe: Fever of 101 or Higher Suture Line Care: Avoid Pulling/Pushing and Avoid Pinching/Bending Remove Dressing in: 3 days Cleanse incision/area with: Soap Water Follow Up Care Please Follow Up With: Jose Coronado MD When: Please contact our office for a 10-14 day follow-up at [phone] Test Results: Test results from this visit will be discussed in further detail at your follow-up appointment, if applicable. Discharge Plan Admission Admit Date/Time: 05/13/24 12:36 Primary Reason for Your Visit: Chronic cholecystitis with calculus Attending Provider: Jose Coronado Primary Care Provider: Angelika Nicholas Instructions Additional Instructions / Restrictions: Cholecystectomy Diet ??? Start light with soups and soft bland foods. You may advance diet as tolerated. Activity ??? You may drive in 3 days but not while taking narcotic pain medication. ??? I encourage walking. You may go up steps, one at a time. ??? Do not swim or use hot tubs for 2 weeks. ??? For comfort, you may use warm compresses or ice as needed for 15-20 minutes at a time. Lifting ??? You may lift up to 15 pounds for 2 weeks. No strenuous exercise for 4 weeks. Dressings/Incision ??? You may shower OVER your plastic dressings ??? Do NOT tub bathe for 1 week ??? Leave plastic dressings on for 3 days. ??? When plastic dressings are removed, you will find steri strips. It is okay to continue showering with them in place, pat them dry. ??? You may remove steri-strips after 1 week. We recommend getting them soaking wet for easier removal. Medications ??? Anesthesia used during surgery and pain medications may cause constipation. I recommend initiating on the day of surgery a fiber supplement like, Metamucil, Citrucel, FiberCon, Benefiber, or a generic form of these medications. 1 heaping tablespoon in water daily. You may continue to utilize any bowel regimen or oral laxatives that you routinely take. Recommend taking Miralax for constipation as needed. Recommend taking 1 tablespoon mixed into any 8 oz beverage i.e., water, orange juice, etc. ??? As long as you are not intolerant to Tylenol, acetaminophen, ibuprofen, Motrin, Advil, Aleve, or similar medications, I would recommend transitioning to these lwtk-bep-iqmncey medicines as soon as possible instead of continued use of narcotic pain medication. Follow up ??? You should call [facility] soon after surgery, at [phone] option 1 to make a follow up appointment for 10-14 days after your surgery. Discharge Orders/Prescriptions Prescriptions: New oxycodone 5 mg Tablet 5 mg PO Q6H PRN (Reason: pain) 3 Days Qty: 7 0RF tamsulosin 0.4 mg Capsule 0.4 mg PO QHS Qty: 7 0RF Continued hydrochlorothiazide 12.5 mg capsule 12.5 mg PO QDAY amlodipine 5 mg tablet 5 mg PO QDAY turmeric root extract 500 mg capsule 500 mg PO DAILY Referrals / Follow Up: Angelika Nicholas MD [Primary Care Provider] - Disposition Disposition (needs filled in before D/C Order can be placed): Home, Self Care 05/14/24 1016 Dana VU PA-C CC: Dr. Angelika Nicholas MD Signed Normal [facility] 12 Lead EKGon 05-13-2024 12 Lead EKG [facility] Cardiovascular Services [address] [place] [address] 12 Lead EKG 05/13/24 0907 MR#: [id number] Acct: [id number] Name: PHUC PEREZ Rep #: [id number] : 1970 53 From: Byron Michelle MD Attending Dr: Dr. Jose Coronado MD Status: DIS LISSETH Ordering Dr: Patrick Elias MD Date: 05/13/24 Location: [facility] Sex: M C Admitted: 05/13/24 Test Reason : PREOP Blood Pressure : / mmHG Vent. Rate : 075 BPM Atrial Rate : 075 BPM P-R Int : 180 ms QRS Dur : 082 ms QT Int : 394 ms P-R-T Axes : 012 005 033 degrees QTc Int : 439 ms Normal sinus rhythm Normal ECG When compared with ECG of 13-MAY-2010 11:14, No significant change was found Confirmed by Byron Michelle ([id number]), field map editor DANA TATUM ([id number]) on 05/17/2024 9:24:16 AM Referred By: Jose Coronado Confirmed By:Byron Michelle 05/17/24 0924 Date Byron Michelle MD CC: Dr. Angelika Nicholas MD; Dr. Jose Coronado MD; Dr. Patrick Elias MD Signed Normal [facility] CBC-Complete Blood Cnt No Ana Lilia rogers 05-13-2024 Erythrocyte distribution width (RBC) [Ratio] 12.5 % Normal 11.6-14.6 [facility] Comment on above: Performed By: #### L 100.0500 #### [facility] Laboratory [address] [place], [address] Hematocrit (Bld) [Volume fraction] 45.8 % Normal 40-54 [facility] Comment on above: Performed By: #### L 100.0500 #### [facility] [address] [place], [address] Hemoglobin (Bld) [Mass/Vol] 15.8 g/dL Normal 13.0-16.5 [facility] Comment on above: Performed By: #### L 100.0500 #### [facility] [address] [place], [address] MCH (RBC) [Entitic mass] 30.9 pg Normal 27.0-32.0 [facility] Comment on above: Performed By: #### L 100.0500 #### [facility] [address] [place], [address] MCHC (RBC) [Mass/Vol] 34.5 g/dL Normal 32-36 [facility] Comment on above: Performed By: #### L 100.0500 #### [facility] [address] [place], [address] MCV (RBC) [Entitic vol] 89.5 fL Normal 80-94 [facility] Comment on above: Performed By: #### L 100.0500 #### [facility] [address] [place], [address] Platelet mean volume (Bld) [Entitic vol] 10.8 fL Normal 6.2-12.0 [facility] Comment on above: Performed By: #### L 100.0500 #### [facility] [address], [address] Platelets (Bld) [#/Vol] 188 10*3/uL Normal 150-450 [facility] Comment on above: Performed By: #### L 100.0500 #### [facility] [address] [place], [address] RBC (Bld) [#/Vol] 5.12 10*6/uL Normal 4.6-6.2 [facility] Comment on above: Performed By: #### L 100.0500 #### [facility] [address] [place] [place], [address] RDW SD 41.0 fl Normal 35.1-43.9 [facility] Comment on above: Performed By: #### L 100.0500 #### [facility] [address] [place], [address] WBC (Bld) [#/Vol] 11.7 10*3/uL High 4.4-11.0 [facility] Comment on above: Performed By: #### L 100.0500 #### [facility] [address] [place], [address] Cholangiogram/ O R,Initialon 05-13-2024 Cholangiogram/ O R,Initial [facility] Imaging Services [address] [place] [address] Cholangiogram/ O R,Initial MR#: [id number] Acct: [id number] Name: PHUC PEREZ David Rep #: [id number] : 1970 M 53 From: Mario Reyes MD PCP: Dr. Angelika Nicholas MD Status: [facility] Study: Cholangiogram/ O R,Initial Date of Exam: 05/13 Exam# [id number] Ordering Dr: Jose Coronado :[id number] EXAM: FL CHOLANGIOGRAPHY AND/OR PANCREATOGRAPHY CLINICAL INDICATION: TECHNIQUE: Cine fluoroscopic images of the upper abdomen obtained at the time of laparoscopic cholecystectomy. Contrast injected via the cystic duct. COMPARISON: No relevant prior studies available. FINDINGS: Normal-appearing biliary tree. No filling defects to indicate retained stone. There is visualization of the duodenum. See operative note for additional information. RAD/Cholangiogram/ O R,Initial IMPRESSION: Normal operative cholangiogram. Electronically Signed: Mario Reyes MD at 11:50 EDT , CC: Dr. Angelika Nicholas MD; Dr. Jose Coronado MD Radio Producer: Signed Normal [facility] HH, Hemoglobin AND Hematocri ton 05-13-2024 Hematocrit (Bld) [Volume fraction] 47.7 % Normal 40-54 [facility] Comment on above: Performed By: #### L 100.0600 #### [facility] [address] [place], [address] Hemoglobin (Bld) [Mass/Vol] 16.7 g/dL High 13.0-16.5 [facility] Comment on above: Performed By: #### L 100.0600 #### [facility] [address] [place], [address] MR/POSTOP.ANEon 05-13-2024 [facility] Department [address] [place] [address] Anesthesia Postop Eval I 05/13/24 1209 MR#: [id number] Acct: [id number] Name: PHUC PEREZ Rep #: [id number] : 1970 53 From: Chago Beth CRNA PCP: Dr. Angelika Nicholas MD Status:REG SDC Y Race: C Location: [place] [address] Anesthesia: Postop Eval I Current Vital Signs Temperature: 97 F Pulse Rate: 110 Blood Pressure: 151/75 Respiratory Rate: 14 Pulse Ox: 94 Oxygen Delivery Method: Room Air Assessment Airway patent: Yes Spontaneous unlabored respirations: Yes Mental status: Awake nausea: No Vomiting: No Anesthesia Complication: No Fluid Hydration Crystalloid volume administer (ml): 1,000 Total IV fluid infused: 1,000 Progress Note Anesthesia document: Postop Eval 1 completed: Yes 05/13/24 1225 Date Chago Kirit CLERK OPERATOR Cosigner Signature: Date CC: Signed Normal [facility] MR/[id number] 05-13-2024 MR/POSTOPAN2 [facility] Medical Records Department [address] [place] [address] Anesthesia Postop Eval II 05/13/24 1345 MR#: [id number] Acct: [id number] Name: PHUC PEREZ Rep #: [id number] : 1970 53 From: Patrick Elias MD PCP: Dr. Angelika Nicholas MD Status:ADM LISSETH Y Race: C Location: [place] [address] Anesthesia Postop Eval I Sum Postop Eval Completion status Anesthesia document: Postop Eval 1 completed: Yes Anesthesia Postop Eval I Summary Anesthesia Postop Eval I Summary: Anesthesia Postop Eval I: Assessment Summary Airway patent Yes 05/13/24 12:25 CLERK [email or web address] Spontaneous unlabored Yes 05/13/24 12:25 CLERK [email or web address] respirations Mental status Awake 05/13/24 12:25 CLERK [email or web address] nausea No 05/13/24 12:25 CLERK OPERATOR.[email or web address] Vomiting No 05/13/24 12:25 CLERK [email or web address].[email or web address] Anesthesia Postop Eval I: Fluid Summary Crystalloid volume administer 1,000 05/13/24 12:25 CLERK [email or web address] (ml) Colloids volume administered ( ml) Blood Product volume administered (ml) Total IV fluid infused 1,000 05/13/24 12:25 CLERK [email or web address] Anesthesia Postop Eval I: Summary Notes Anesthesia Complication No 05/13/24 12:25 CLERK [email or web address] Anesthesia Complication Comment: Post-operative progress note Anesthesia: Postop Eval II Evaluation Mental status: Awake Pain Level: 0 nausea: No Vomiting: No 05/13/24 1345 Date Patrick Elias MD Cosigner Signature: Date CC: Signed Normal [facility] Operative Reporton 4 Operative Report [facility] Medical Records Department [address] [place] [address] Operative Report 05/13/24 1352 MR#: [id number] Acct: [id number] Name: PHUC PEREZ Rep #: [id number] : 1970 53 From: Jose Coronado MD PCP: Dr. Angelika Nicholas MD Status:ADM [facility] Location: [place] [address] Report of Operation Date of Procedure: 05/13/24 Pre-Operative Diagnosis: Cholelithiasis Post-Operative Diagnosis: Acute on chronic cholecystitis Surgery/Procedure Performed:: Laparoscopic cholecystectomy with cholangiograms Type of Anesthesia: General/Regional Specimen's removed: Gallbladder and contents Estimated Blood Loss (mL): 50 Description of Procedure: After obtaining informed consent patient was brought back to the operating room. General anesthesia was induced. The abdomen was prepped and draped in usual sterile fashion. A small midline incision was made superior to the umbilicus and deepened to the level of fascia. The fascia was elevated and incised. Next the peritoneum was elevated and incised in the same fashion. Finger sweep was performed and the Smith trocar was placed into the abdomen. The balloon was inflated. The abdomen was inflated to 15 mmHg. Next a camera was introduced into the abdomen and the abdomen was inspected. Next under direct visualization three 5-mm ports were placed one subxiphoid and 2 subcostal. The gallbladder was identified adherent to the overlying omentum. This was dissected free. Next the gallbladder was elevated and retracted toward the right shoulder. The peritoneum was stripped from the gallbladder. The infundibulum was located and retracted laterally. Next the triangle of Calot was dissected and the cystic duct and cystic artery were identified. Cholangiograms were performed. The Tom clamp was used to clamp across the infundibulum and the catheter needle was inserted into the gallbladder. Under fluoroscopy contrast was instilled into the gallbladder and the common duct, cystic duct as well as proximal hepatic ducts were identified. There was good filling of the duodenum. There were no filling defects noted in the common bile duct. The clamp was removed as well as the needle and the infundibulum was grasped once more. Three hemolock clips were placed across the cystic duct. The cystic duct was then divided leaving 2 clips on the stump. The cystic artery was clipped and divided in the same fashion. The hook cautery was then used to take the gallbladder off of the gallbladder bed. Hemostasis was obtained using hemoblast and electrocautery. Gallbladder fossa was irrigated and no active bleeding or bile leakage was noted. Next the camera was introduced in the subxiphoid port. An Endopouch bag was placed through the umbilical port and the gallbladder was placed into it. The gallbladder was then removed through the umbilical incision. The camera was then reinserted through the umbilical port. The gallbladder fossa was inspected once more and noted to be hemostatic with no leaking bile. The abdomen was suctioned dry. The 5 mm ports were removed under direct visualization. The umbilical port was then removed and the air was removed from the abdomen. Next using an 0 Vicryl suture the umbilical fascia was closed in a [id number] fashion. The umbilical port site was irrigated local anesthetic was administered to all the incisions. All the incisions were closed with interrupted subcuticular 4-0 Monocryl sutures followed by Steri-Strips and dressings. The patient was awoken and taken to PACU in stable condition. Admit VTE Documentation VTE Mechan Device Prophylaxis: SCD's 05/13/24 4888 Cosigner Signature (if applicable): CC: Dr. Angelika Nicholas MD; Dr. Jose Coronado MD Signed Normal [facility] Surgery Specimen Level IIIon 05-13-2024 Surgery Specimen Level III -------- Patient Age/Sex Location Account Attending Physician -------- PHUC PEREZ 53/M MS3 [id number] Dr. Jose Coronado MD -------- Specimen: [id number] Received: 05/13/24086 Status: CAESAR Armando Num: [id number] Spec Type: REMI Reyna Dr: Dr. Jose Coronado MD HEADER OPERATION: Laparoscopic, cholecystectomy with IOC PRE-OP DIAGNOSIS: Gallstones TISSUE SUBMITTED: Gallbladder and contents -------- MICROSCOPIC DIAGNOSIS Gallbladder, cholecystectomy: Chronic cholecystitis and cholelithiasis. BROOK[place]NN/ 05/15/2024 MICROSCOPIC DESCRIPTION Slides are reviewed. GROSS DESCRIPTION Received is one container labeled with the patient's name and designated gallbladder. The specimen consists of a gallbladder measuring 10.0 cm in length and up to 5.0 cm in diameter. The external surface is pink-kidd, smooth and glistening for the most part. Focally it is granular, hemorrhagic and contains cautery artifact. The gallbladder contains hemorrhagic- mucoid bile and two brownish-black stones measuring in aggregate 0.9 and 2.0cm in greatest dimension. The larger stone with impacted in the proximal portion of the gallbladder. The mucosa is bile-stained and without any mass lesions. The gallbladder wall measures up to 0.3 cm in thickness. Industrial Spray Painter sections from the gallbladder and the cystic duct are submitted in three cassettes. / [place]NN: 05/14/2024 TC:3 CPT: 64142 -------- Patient Age/Sex Location Account Attending Physician -------- PHUC PEREZ/M MS3 [id number] Dr. Jose Coronado MD -------- Signed (signature on file) Dr. Anthony Gallagher MD 05/15/24 1210 -------- Normal [facility] Comment on above: Performed By: #### P SUIII ####[facility] [id number] [place], [place], [address] Surgery Visit Reporton 05-03 Surgery Visit Report [facility] [address] [place] [address] OFFICE VISIT Date of Service: 05/03/24 MR#: [id number] Acct: [id number] Name: PHUC PEREZ Rep #: [id number] : 1970 Provider: Dr. Jose valles MD Age/Sex: 53/M Location: [facility] Status: Signed Intake Vital Signs 05/03/24 08:45 Height 6 ft 1 in Weight: 273 lb 8 oz BMI 36.1 BP 136/87 H Blood Pressure Location Rt brachial Position Sitting Respiration 18 Pulse 72 Pulse Source Monitor Temp 97.1 F L Temp Source Temporal Pulse Oximetry (%) 97 Oxygen Delivery Method room air Intake Visit Reasons: GALLSTONES Chief Complaint: gallstones Accompanied by: Is patient in pain?: No Allergies aspirin Adverse Reaction (Mild, Verified 05/03/24 08:48) Other Medications ???Medication ???Instructions ???Recorded ???Confirmed ???Type amlodipine 5 mg tablet 5 mg PO QDAY 05/03/24 05/03/24 History hydrochlorothiazide 12.5 mg capsule 12.5 mg PO QDAY 05/03/24 05/03/24 History turmeric root extract 500 mg 500 mg PO DAILY 05/03/24 05/03/24 History capsule PFSH Social History (Updated 05/03/24 @ 08:45 by Mini Keen LPN) Smoking Status: Current every day smoker tobacco type: cigarettes alcohol intake: never substance use type: does not use HPI HPI HPI: Patient is a 53-year-old male here for gallstones. He says he found out he had gallstones 13 years ago and has been putting off surgery and has daily dull aching pain in the right side. He says it especially hurts when bending or leaning over. He recently had an ultrasound showed a mildly thickened gallbladder wall with gallstones. He denies nausea or vomiting. He denies fevers or chills. ROS General General: No weight change, appetite, fatigue, colon cancer, breast cancer or weakness HEENT HEENT: No difficulty swallowing, eye injury, eye surgery, swollen glands or hoarseness Endo Endocrine: No thyroid disease, diabetes mellitus, thyroid cancer, Hair loss, heat intolerance or cold intolerance Skin Skin: No rash or changing moles Musc Musculoskeletal: No back problems, arthritis, rheumatoid arthritis, gout or joint pain Cardio Cardiovascular: Yes high blood pressure; No murmur, pacemaker, heart disease, atrial fibrillation, heart attack, heart stent, palpitations, shortness of breat with exertion or chest pain Psych Psychiatric: No depression, anxiety or hearing voices Resp Respiratory: No shortness of breath, Yes sleep apnea, No cough, No COPD, No asthma, No emphysema and No wheezing Gastro Gastrointestinal: Yes abdominal pain (RUQ), No nausea or vomiting, No diarrhea, No constipation, No blood in stool, No acid reflux, No hemorrhoids, No ulcers, Yes gallbladder problem and No black,tarry stools Dileep Hematologic: Yes blood thinners, No blood disorders, No bleeding, No anemia and No blood clots Additional Details: fish oil Neuro Neurologic: No numbness, No tingling and No weakness Exam Const General: cooperative Orientation: alert and oriented x3 HENMT Head: normal to inspection Neck Neck: normal visual inspection and full ROM Chest Chest palpation inspection: normal inspection of the chest Resp Effort Inspection: normal respiratory effort Auscultation: clear to auscultation bilaterally Cardio Rate: regular rate Rhythm: regular rhythm GI Inspection: non-distended Palpation: soft and nontender Skin General: no rashes or lesions noted Neuro General: patient alert and patient oriented x3 Extrem General: full ROM Psych Appearance: grossly normal Mental Status: mental status grossly normal Assessment and Plan Assessment and Plan (1) Gallstones: Status: Acute Plan: I reviewed his imaging with him and he does have gallstones and right upper quadrant pain. Recommend laparoscopic cholecystectomy. I discussed the procedure in detail with the patient. I discussed the risks, benefits, and alternatives of the procedure. I discussed the risks including but not limited to bleeding, infection, injury to surrounding organs such as the liver, bile duct, bowels. I did discuss the possibility of having to convert to an open procedure as well as the possibility that if any injuries occurred this may necessitate further surgery at a tertiary care center. Jose Coronado MD Pager: [facility] [address] [place] [address] [address] [place] [address] Office: Coding Level of Care Code Off vis,new,level 4 Diagnoses Gallstones K80.20 05/03/24 1051 Date [facility]: Date (more content not included)... Normal [facility] Basophil percentageOrdered B y: Leonardo Donahue on 03-15-2024 Chloride [Moles/Vol] 109 mmol/L 98-107 [facility] Cholesterol [Mass/Vol] 149 mg/dL <200 [facility] Comment on above: <200 mg/dL Desirable 200-240 mg/dL Borderline >240 mg/dL High Risk Glucose [Mass/Vol] 91 mg/dL 74-106 [facility] Potassium [Moles/Vol] 3.7 mmol/L 3.5-5.1 [facility] Sodium [Moles/Vol] 141 mmol/L 136-145 [facility] Triglyceride [Mass/Vol] 65 mg/dL <199 [facility] Comment on above: The drugs N-Acetylcy steine and Metamizole may falsely depress this assay.Serum Triglycerides Reference Interval Normal <150 mg/dL Borderline high 150 - 199 mg/dL High 200 - 499 mg/dL Very High > or = 500 mg/dL Laboratory - Chemistry and C hemistry - challengeOrdered By: Leonardo Donahue on 03-15-2024 Cholesterol in HDL [Mass/Vol] 29 mg/dL >40 [facility] Comment on above: The drugs N-Acetylcy steine and Metamizole may falsely depress this assay. Reference Range HDL <40 mg/dL Low HDL Cholesterol HDL >or= 60 mg/dL High HDL Cholesterol Cholesterol in LDL [Mass/Vol] 107 mg/dL 0-130 [facility] CO2 [Moles/Vol] 27.0 mmol/L 21.0-32.0 [facility] Urea nitrogen/Creatinine [Mass ratio] 18.1 mg/mg 10-20 [facility] No Panel InformationOrdered By: Leonardo Donahue on 03-15-2024 Estimated GFR (MDRD) Amer 125 mL/min >60 [facility] Comment on above: GFR Calc Estimated GFR (MDRD) Non-Af Amer 104 mL/min >60 [facility] Comment on above: Non- GFR Calc VLDL Cholesterol 13 mg/dL 5-40 [facility] Serum or plasma calcium aga urement (mass/volume)Ordered By: Leonardo Donahue on 03-15-2024 Calcium [Mass/Vol] 8.9 mg/dL 8.5-10.1 [facility] Serum or plasma creatinine m easurement (mass/volume)Ordered By: Leonardo Donahue on 03-15-2024 Creatinine [Mass/Vol] 0.83 mg/dL 0.70-1.30 [facility] Comment on above: The validity of the calculated GFR & GFRAA in patients over 70 years has not been determined. Clinical correlation is essential. Serum or plasma urea nitroge n measurement (mass/volume)Ordered By: Leonardo Donahue on 03-15-2024 Urea nitrogen [Mass/Vol] 15 mg/dL 7-18 [facility] Thin prep Papanicolaou smear with manual screeningOrdered By: Leonardo Donahue on 03-15-2024 Thin prep Papanicolaou smear with manual screening 5 5-15 [facility] Basophil percentageOrdered B y: Vickie Castellanos on 02-17-2023 Bilirubin [Mass/Vol] 0.40 mg/dL 0.20-1.00 [facility] Comment on above: For patients on eltr ombopag therapy, use of Dimension [place] TBIL is not recommended. Chloride [Moles/Vol] 111 mmol/L 98-107 [facility] Cholesterol [Mass/Vol] 167 mg/dL <200 [facility] Comment on above: <200 mg/dL Desirable 200-240 mg/dL Borderline >240 mg/dL High Risk Glucose [Mass/Vol] 104 mg/dL 74-106 [facility] Comment on above: Fasting Glucose resu lt from 100 to 125 mg/dL suggests IMPAIRED HOMEOSTASIS per A.D.A. criteria. Potassium [Moles/Vol] 3.7 mmol/L 3.5-5.1 [facility] Protein [Mass/Vol] 7.3 g/dL 6.4-8.2 [facility] Sodium [Moles/Vol] 142 mmol/L 136-145 [facility] Triglyceride [Mass/Vol] 76 mg/dL <199 [facility] Comment on above: The drugs N-Acetylcy steine and Metamizole may falsely depress this assay.Serum Triglycerides Reference Interval Normal <150 mg/dL Borderline high 150 - 199 mg/dL High 200 - 499 mg/dL Very High > or = 500 mg/dL Laboratory - Chemistry and C hemistry - challengeOrdered By: Vickie Castellanos on 02-17-2023 ALP [Catalytic activity/Vol] 90 U/L 45-117 [facility] ALT [Catalytic activity/Vol] 43 U/L 16-61 [facility] CO2 [Moles/Vol] 27.0 mmol/L 21.0-32.0 [facility] Globulin (S) [Mass/Vol] 3.4 g/dL 2.2-4.2 [facility] Urea nitrogen/Creatinine [Mass ratio] 19.0 mg/mg 10-20 [facility] No Panel InformationOrdered By: Vickie Castellanos on 02-17-2023 Estimated GFR (MDRD) Amer 157 mL/min >60 [facility] Comment on above: GFR Calc Estimated GFR (MDRD) Non-Af Amer 130 mL/min >60 [facility] Comment on above: Non- GFR Calc Serum or plasma albumin aga urement (mass/volume)Ordered By: Vickie Castellanos on 02-17-2023 Albumin [Mass/Vol] 3.9 g/dL 3.2-5.0 [facility] Serum or plasma albumin/glob ulin mass ratioOrdered By: Vickie Castellanos on 02-17-2023 Albumin/Globulin [Mass ratio] 1.1 {ratio} 0.9-2.4 [facility] Serum or plasma calcium aga urement (mass/volume)Ordered By: Vickie Castellanos on 02-17-2023 Calcium [Mass/Vol] 8.8 mg/dL 8.5-10.1 [facility] Serum or plasma cholesterol in HDL measurement (mass/volume)Ordered By: Vickie Castellanos on 02-17-2023 Cholesterol in HDL [Mass/Vol] 34 mg/dL >40 [facility] Comment on above: The drugs N-Acetylcy steine and Metamizole may falsely depress this assay. Reference Range HDL <40 mg/dL Low HDL Cholesterol HDL >or= 60 mg/dL High HDL Cholesterol Serum or plasma cholesterol in VLDL measurement (mass/volume)Ordered By: Vickie Castellanos on 02-17-2023 Cholesterol in VLDL [Mass/Vol] 15 mg/dL 5-40 [facility] Serum or plasma creatinine m easurement (mass/volume)Ordered By: Vickie Castellanos on 02-17-2023 Creatinine [Mass/Vol] 0.68 mg/dL 0.70-1.30 [facility] Comment on above: The validity of the calculated GFR & GFRAA in patients over 70 years has not been determined. Clinical correlation is essential. Serum or plasma low density lipoprotein (LDL) cholesterol measurement (mass/volume)Ordered By: Vickie Castellanos on 02-17-2023 Cholesterol in LDL [Mass/Vol] 118 mg/dL 0-130 [facility] Serum or plasma urea nitroge n measurement (mass/volume)Ordered By: Vickie Castellanos on 02-17-2023 Urea nitrogen [Mass/Vol] 13 mg/dL 7-18 [facility] Thin prep Papanicolaou smear with manual screeningOrdered By: Vickie Castellanos on 02-17-2023 Thin prep Papanicolaou smear with manual screening 27 U/L 15-37 [facility] Thin prep Papanicolaou smear with manual screening 4 5-15 [facility] Vital Signs Date Time Vital Sign Value Performing Clinician Faci lity 03-11-2025 12:45-0400 Body height 182.[address] Angelika Nicholas MD Work Phone: [facility] 03-11-2025 12:45-0400 Body mass index (BMI) [Ratio] 38.9 kg/m2 Dr. Angelika Nicholas MD Work Phone: [facility] 03-11-2025 12:45-0400 Body temperature 97.6 [degF] Dr. Angelika Nicholas MD Work Phone: [facility] 03-11-2025 12:45-0400 Body weight 130.[address] Angelika Nicholas MD Work Phone: [facility] 03-11-2025 12:45-0400 Diastolic blood pressure 82 mm[Hg] Dr. Angelika Nicholas MD Work Phone: [facility] 03-11-2025 12:45-0400 Heart rate 72 /min Dr. Angelika Nicholas MD Work Phone: [facility] 03-11-2025 12:45-0400 Respiratory rate 17 /min Dr. Angelika Nicholas MD Work Phone: [facility] 03-11-2025 12:45-0400 SaO2% (BldA) [Mass fraction] 98 % Dr. Angelika Nicholas MD Work Phone: [facility] 03-11-2025 12:45-0400 Systolic blood pressure 152 mm[Hg] Dr. Angelika Nicholas MD Work Phone: [facility] Encounters Encounter Date Encounter Type Care Provider Facility Start: 04-25-2025 End: 04-25-[address] Jose Coronado MD -[facility] Work Phone: Start: 04-25-2025 End: 04-25-[address] Angelika Nicholas MD Work Phone: [facility] Work Phone: Start: 04-11-2025 End: 04-11-[address] Angelika Nicholas MD Work Phone: [facility] Work Phone: Start: 04-11-2025 End: 04-11-[address] Jose Coronado MD -[facility] Work Phone: Start: 04-11-2025 End: 04-11-2025 ambulatory Angelika Nicholas Facility:[facility] Start: 03-11-2025 End: 03-11-[address] Jose Coronado MD -[facility] Work Phone: Start: 03-11-2025 End: 03-11-2025 ambulatory Jose Coronado Facility:[facility] Start: 01-24-2025 End: 01-24-[address] Angelika Nicholas MD Work Phone: [facility] Work Phone: Start: 01-24-2025 End: 01-24-[address] Angelika Nicholas MD -Laboratory, [facility] Start: 01-24-2025 End: 01-24-2025 ambulatory Angelika Nicholas Facility:[facility] Start: 06-05-2024 End: 06-05-2024 ambulatory Jose Coronado Facility:[facility] Start: 06-03-2024 Encounter for other preprocedural examination Jose Coronado [facility] Start: 05-24-2024 End: 05-24-2024 ambulatory Jose Coronado Facility:[facility] Start: 05-13-2024 End: 05-14-2024 ambulatory Angelika Nicholas Facility:[facility] Start: 05-13-2024 ambulatory Angelika S Cristopher Facility: [facility] Start: 05-13-2024 End: 05-13-2024 ambulatory Angelika Nicholas Facility:[facility] Start: 05-03-2024 End: 05-03-2024 ambulatory Angelika Nicholas Facility:[facility] Start: 03-15-2024 End: 03-15-2024 ambulatory [facility] Work Phone: Start: 03-15-2024 End: 03-15-2024 Patient encounter procedure [facility] [place] Work Phone: Start: 02-17-2023 End: 02-17-2023 ambulatory [facility] Work Phone: Start: 02-17-2023 End: 02-17-2023 Patient encounter procedure [facility], [facility] Procedures Date Procedure Procedure Detail Performing Clinician Start: 04-11-2025 Computed tomography of abdomen and pelvis with contrast Dr. Angelika Nicholas MD Work Phone: Start: 01-24-2025 Prostate specific an tigen measurement Dr. Angelika Nicholas MD Work Phone: Comment on above: This test was perfor med using the [employer] tPSA method. Measured values of a patient sample can vary depending on the testing procedure used. PSA values determined on patient samples by different testing procedures cannot be used interchangeably. If there is a change in PSA assays while monitoring therapy, sequential testing should be performed to confirm baseline values. Start: 02-17-2023 CT of chest History of cholecystectomy S/P cholecyste ctomy Dr. Angelika Nicholas MD Work Phone: History of tonsillectomy Hx of tonsillect devin Dr. Angelika Nicholas MD Work Phone: Payers Date Payer Category Payer Self-pay [id number] 2024 Unknown [id number] Unknown [id number] 2.16.8 [id number] Unknown [id number] 2.16.8 [id number] Unknown [id number] 2.16.8 [id number] Unknown [id number] 2.16.8 [id number] Unknown [id number] 2.16.8 [id number] Unknown [id number] 2.16.8 [id number] Unknown [id number] 2.16.8 [id number] Unknown [id number] 2.16.8 [id number] Unknown [id number] 2.16.8 [id number] Unknown [id number] 2.16.8 [id number] Unknown [id number] 2.16.8 [id number] Social History Date Type Detail [facility] Work Phone: Start: 1970 Sex Assigned At Male [facility] Start: 05-13-2024 [facility]finding) [facility] Start: 02-02-2025 Sex Male (finding) [facility] Medical Equipment Procedure Code Equipment Code Equipment Origin al Text Equipment Identifier Dates Total cholecystectomy with exploration of common bile duct [place]IP[place] FDA Start: 05-13-2024 Total cholecystectomy with exploration of common bile duct CLIP,DILLON CHAMBERLAIN FDA Start: 05-13-2024 Total cholecystectomy with exploration of common bile duct CLIP,DILLON CHAMBERLAIN FDA Start: 05-13-2024 Total cholecystectomy with exploration of common bile duct CLIP,HEMOLOCK MED WECK FDA Start: 05-13-2024 Total cholecystectomy with exploration of common bile duct Collagen haemostatic agent, non-antimicrobial ()[id number] FDA Start: 05-13-2024 Total cholecystectomy with exploration of common bile duct CLIP,HEMOLOCK MED WECK FDA Start: 05-13-2024 Total cholecystectomy with exploration of common bile duct CLIP,HEMOLOCK MED WECK FDA Start: 05-13-2024 Total cholecystectomy with exploration of common bile duct CLIP,HEMOLOCK MED WECK FDA Start: 05-13-2024 Total cholecystectomy with exploration of common bile duct CLIP,HEMOLOCK MED WECK FDA Start: 05-13-2024 Total cholecystectomy with exploration of common bile duct CLIP,HEMOLOCK MED WECK FDA Start: 05-13-2024 Total cholecystectomy with exploration of common bile duct CLIP,HEMOLOCK [place]yx[place] WECK FDA Start: 05-13-2024 Total cholecystectomy with exploration of common bile duct CLIP,HEMOLOCK MED WECK FDA Start: 05-13-2024 Total cholecystectomy with exploration of common bile duct CLIP,HEMOLOCK [place]yx[place] WECK FDA Start: 05-13-2024 Radiology Diagnostic study note 04-12-2025 Note Date & Type Note Facility 04-12-2025 Radiology Diagnostic study note [facility] Imaging Services [address] [place] [address] [id number] Abdomen/Pelvis WITH Contrast MR#: [id number] Acct: [id number] Name: PHUC PEREZ Rep #: [id number] : 1970 M 54 From: Megan Torres MD PCP: Dr. Angelika Nicholas MD Status: REG CLI Study:Abdomen/Pelvis WITH Contrast Date of Ex am: 04/11/25 Exam# [id number] Ordering Dr: Jose May MD PROCEDURE: ABDOMEN/PELVIS WITH CONTRAST 04/11/2025 REASON FOR EXAM: Right upper quadrant pain for 6 months TECHNIQUE: Abdomen and pelvis CT with intravenous contrast. Coronal and Sagittal reconstruction series were provided. CONTRAST: 100 mL of Isovue 370 One or more dose reduction techniques were used (e.g., Automated exposure control, adjustment of the mA and/or kV according to patient size, use of iterative reconstruction technique. RADIATION DOSE SUMMARY: DLP: 1405 mGycm COMPARISON: 06/05/2024 FINDINGS: Limited sections of the lung bases demonstrate no focal pulmonary mass. The liver, spleen, pancreas, both kidneys, and both adrenal glands demonstrate no acute findings. Stable bilateral adrenal hyperplasia. 1.8 cm cyst within the left kidney. Nonobstructive tiny stone within left kidney. Smaller subcentimeter hypodensities within the bilateral kidneys too small to accurately characterize. Hepatic steatosis. Hepatomegaly measuring up to 18.4 cm. The gallbladder is surgically absent. The stomach is unremarkable. The aorta and IVC demonstrate no acute findings. Mild atherosclerosis of the abdominal vasculature. There is no free air, free fluid or intestinal obstruction. The small bowel loops are not dilated. The appendix is normal. No bowel obstruction. The pelvic structures are intact. There is no solid pelvic mass. Mild urinary bladder wall thickening which may reflect cystitis versus partial nondistention; consider correlation with urinalysis. Mild prostatomegaly with transverse dimension up to 5.1 cm. No acute osseous pathology. CT/Abdomen/Pelvis WITH Contrast IMPRESSION: Mild urinary bladder wall thickening which may reflect cystitis versus partial nondistention; consider correlation with urinalysis. Stable bilateral adrenal hyperplasia. Reading Location: [facility] CC: Dr. Angelika Nicholas MD; Dr. Jose Coronado MD ~ Radio Producer: Signed [facility] Evaluation note 03-11-2025 Note Date & Type Note Facility 03-11-2025 Evaluation note Diagnosis Onset Date Resolution RUQ pain acute March 11 12:38pm [facility] Work Phone: Discharge summary note 05-14-2024 Note Date & Type Note Facility 05-14-2024 Note [facility] Medical Records Department [address] [place] [address] Discharge Summary 05/14/24 08 MR#: [id number] Acct: [id number] Name: PHUC PEREZ Rep #: [id number] : 1970 53 From: Dana VU PA-C PCP: Dr. Angelika Nicholas MD Status:ADM LISSETH Location: [place] [id number] Providers Date of Admission: 05/13/24 Primary Care Physician: Dr. Angelika Nicholas MD Reason For Visit: Laparoscopic, Cholecystectomy with Diagnosis Discharge Diagnosis (1) Gallstones: Status: Acute Code(s): K80.20 - Calculus of gallbladder without cholecystitis without obstruction Medications at Discharge Home Medications amlodipine 5 mg tablet 5 mg PO QDAY 05/03/24 hydrochlorothiazide 12.5 mg capsule 12.5 mg PO QDAY 05/03/24 turmeric root extract 500 mg capsule 500 mg PO DAILY 05/03/24 oxycodone 5 mg tablet 5 mg PO Q6H PRN pain 3 days #7 tabs 05/14/24 tamsulosin 0.4 mg capsule 0.4 mg PO QHS #7 caps 05/14/24 Hospital Course Operations cholecystecomy Summary of Care Provided Minutes Spent on Discharge: 25 Hospital Course: Patient is a 53 y/o M who presented for an elective laparoscopic cholecystectomy with IOC with Dr. Coronado on 05/13/24. Patient tolerated the procedure well. Patient had a component of acute inflammation that was noted during the procedure and also had some oozing as well. Patient was admitted for observation to watch for bleeding. Patient's hospitalization was uneventful. Upon discharge, patient notes incisional discomfort with position changes. He denies nausea, vomiting, fever. He is tolerating a regular diet. Weight / BMI Weight Weight: 268 lb 15.423 oz Body Mass Index (BMI) 35.6 ABG / Lab / Microbiology Data 05/14/24 07:09 05/14/24 07:09 Laboratory: Laboratory Results - last 24 hr 05/13/24 09:27: WBC 11.7 H, RBC 5.12, Hgb 15.8, Hct 45.8, MCV 89.5, MCH 30.9, MCHC 34.5, RDW Std Deviation 41.0, RDW Coeff of Mp 12.5, Plt Count 188, MPV 10.8 05/13/24 15:40: Hgb 16.7 H, Hct 47.7 05/14/24 07:09: WBC 14.2 H, RBC 5.03, Hgb 15.6, Hct 45.5, MCV 90.5, MCH 31.0, MCHC 34.3, RDW Std Deviation 40.8, RDW Coeff of Mp 12.3, Plt Count 186, MPV 11.5, Immature Gran % (Auto) 0.400, Neut % (Auto) 75.6 H, Lymph % (Auto) 16.6 L, [place] % (Auto) 7.3, Eos % (Auto) 0.0, Baso % (Auto) 0.1, A bsolute Neuts (auto) 10.7 H, Absolute Lymphs (auto) 2.35, Nucleated RBC % 0 Radiography Diagnostic Testing: Radiology Impression Cholangiogram 05/13/24 10:52 IMPRESSION: Normal operative cholangiogram. Electronically Signed: Mario Reyes MD at 11:50 EDT Reading Location ID and State: [address] [place] [address] Tel , Service support , D/C Instructions Discharge Diet: Light diet - advance as tolerated Call your doctor if your incision/area has: Continuous Slow Oozing, Sudden Increased Bleeding, Increased Pain/ Swelling, Increased Redness, Foul Smelling Discharge and Swelling at the incision site Call your doctor if you observe: Fever of 101 or Higher Suture Line Care: Avoid Pulling/Pushing and Avoid Pinching/Bending Cleanse incision/area with: Soap Water Please Follow Up With: Jose Coronado MD When: Please contact our office for a 10-14 day follow-up at [phone] Meaningful Use Info Meaningful Use Meaningful Use Diagnoses (Choose all that apply): None applicable Ischemic Stroke Statin Dosing Therapy Reference: STATIN DOSE THERAPY REFERENCE: * Patients > 75 years receive moderate or high dose statin therapy. * Patients 75 years or YOUNGER should receive HIGH intensity statin dose unless contraindicated. You will be required to document reason for non-treatment if statin daily dose does not meet guidelines. HIGH DOSE STATIN THERAPY DAILY Atorvastatin > than or = to 40 mg Rosuvastatin > than or = to 20 mg Amlodipine + Atorvastatin > than or = to 2.5/40 mg Ezetimibe + Simvastatin 10/80 mg Simvastatin 80mg Discharge Plan Admission Admit Date/Time: 05/13/24 12:36 Primary Reason for Your Visit: Chronic cholecystitis with calculus Attending Provider: Jose Coronado Primary Care Provider: Angelika Nicholas Instructions Additional Instructions / Restrictions: Cholecystectomy Diet ??? Start light with soups and soft bland foods. You may advance diet as tolerated. Activity ??? You may drive in 3 days but not while taking narcotic pain medication. ??? I encourage walking. You may go up steps, one at a time. ??? Do not swim or use hot tubs for 2 weeks. ??? For comfort, you may use warm compresses or ice as needed for 15-20 minutes at a time. Lifting ??? You may lift up to 15 pounds for 2 weeks. No strenuous exercise for 4 weeks. Dressings/Incision ??? You may shower OVER your plastic dressings ??? Do NOT tub bathe f (more content not included)... [facility] Clinical Note 05-13-2024 Note Date & Type Note Facility 05-13-2024 Note [facility] Medical Records Department [address] [place] [address] History Physical Exam 05/13/24 1012 MR#: [id number] Acct: [id number] Name: PHUC PEREZ Rep #: [id number] : 1970 53 From: Jose Coronado MD PCP: Dr. Angelika Nicholas MD Status:[facility] Location: [place] [address] History and Physical Date of Admission: 05/13/24 Intake Vital Signs 05/03/2408:45 Height 6 ft 1 in Weight: 273 lb 8 oz BMI 36.1 BP 136/87 H Blood Pressure Location Rt brachial Position Sitting Respiration 18 Pulse 72 Pulse Source Monitor Temp 97.1 F L Temp Source Temporal Pulse Oximetry (%) 97 Oxygen Delivery Method room air Intake Visit Reasons: GALLSTONES Chief Complaint: gallstones Accompanied by: Is patient in pain?: No Allergies aspirin Adverse Reaction (Mild, Verified 05/03/24 08:48) Other Medications ???Medication ???Instructions ???Recorded ???Confirmed ???Type amlodipine 5 mg tablet 5 mg PO QDAY 05/03/24 05/03/24 History hydrochlorothiazide 12.5 mg capsule 12.5 mg PO QDAY 05/03/24 05/03/24 History turmeric root extract 500 mg 500 mg PO DAILY 05/03/24 05/03/24 History capsule PFSH Social History (Updated 05/03/24 @ 08:45 by Mini Keen LPN) Smoking Status: Current every day smoker tobacco type: cigarettes alcohol intake: never substance use type: does not use HPI HPI HPI: Patient is a 53-year-old male here for gallstones. He says he found out he had gallstones 13 years ago and has been putting off surgery and has daily dull aching pain in the right side. He says it especially hurts when bending or leaning over. He recently had an ultrasound showed a mildly thickened gallbladder wall with gallstones. He denies nausea or vomiting. He denies fevers or chills. ROS General General: No weight change, appetite, fatigue, colon cancer, breast cancer or weakness HEENT HEENT: No difficulty swallowing, eye injury, eye surgery, swollen glands or hoarseness Endo Endocrine: No thyroid disease, diabetes mellitus, thyroid cancer, Hair loss, heat intolerance or cold intolerance Skin Skin: No rash or changing moles Musc Musculoskeletal: No back problems, arthritis, rheumatoid arthritis, gout or joint pain Cardio Cardiovascular: Yes high blood pressure; No murmur, pacemaker, heart disease, atrial fibrillation, heart attack, heart stent, palpitations, shortness of breat with exertion or chest pain Psych Psychiatric: No depression, anxiety or hearing voices Resp Respiratory: No shortness of breath, Yes sleep apnea, No cough, No COPD, No asthma, No emphysema and No wheezing Gastro Gastrointestinal: Yes abdominal pain (RUQ), No nausea or vomiting, No diarrhea, No constipation, No blood in stool, No acid reflux, No hemorrhoids, No ulcers, Yes gallbladder problem and No black,tarry stools Dileep Hematologic: Yes blood thinners, No blood disorders, No bleeding, No anemia and No blood clots Additional Details: fish oil Neuro Neurologic: No numbness, No tingling and No weakness Exam Const General: cooperative Orientation: alert and oriented x3 HENMT Head: normal to inspection Neck Neck: normal visual inspection and full ROM Chest Chest palpation inspection: normal inspection of the chest Resp Effort Inspection: normal respiratory effort Auscultation: clear to auscultation bilaterally Cardio Rate: regular rate Rhythm: regular rhythm GI Inspection: non-distended Palpation: soft and nontender Skin General: no rashes or lesions noted Neuro General: patient alert and patient oriented x3 Extrem General: full ROM Psych Appearance: grossly normal Mental Status: mental status grossly normal Assessment and Plan Assessment and Plan (1) Gallstones: Status: Acute Plan: I reviewed his imaging with him and he does have gallstones and right upper quadrant pain. Recommend laparoscopic cholecystectomy. I discussed the procedure in detail with the patient. I discussed the risks, benefits, and alternatives of the procedure. I discussed the risks including but not limited to bleeding, infection, injury to surrounding organs such as the liver, bile duct, bowels. I did discuss the possibility of having to convert to an open procedure as well as the possibility that if any injuries occurred this may necessitate further surgery at a tertiary care center. Jose Coronado MD Pager: [facility] [address] [place] [address], [address] [place] [address] Office: I have examined the patient and the H P has been reviewed. There are no clinical changes since date of exam. 05/13/24 1012 Cosigner Signature (if applicable): CC: Dr. Angelika Nicholas MD; Dr. Jose Coronado MD Signed [facility] Evaluation note Note Date & Type Note Facility Evaluation note No assessment information availa [facility] Work Phone: Reason for referral (narrative) Note Date & Type Note Facility Reason for referral (narrative) No reason for referral information available [facility] Work Phone: Chief Complaint and Reason for Visit Chief Complaint Admit Date RUQ PAIN March 11, 2025 12: 38pm R10.11 Right upper quadrant pain April 11t h2024 1:33pm Reason for Visit Admit Date RUQ pain March 11, 2025 12: 38pm Chief Complaint TOBACCO DEPENDENCE/ ADD LABS Chief Complaint FASTING Chief Complaint Admit Date RUQ PAIN March 11, 2025 12: 38pm R10.11 Right upper quadrant pain March 30t h2024 1:33pm REVIEW CT SCAN April 25, 2025 2:28 pm Reason for Visit Admit Date RUQ pain March 11, 2025 12: 38pm Chief Complaint Admit Date RUQ PAIN March 11, 2025 12: 38pm R10.11 Right upper quadrant pain March 1:33pm Summary Purpose Family History No Family History Records Found Advance Directives No Advanced Directives Records Found Additional Source Comments Care Teams (unrecognized sec tion and content) Team Status: Active Member Role Status Dates Dr. Angelika Nicholas MD Family Provider Active Dr. Angelika Nicholas MD Primary Care Provider Active Team Status: Inactive Member Role Status Dates Dr. Angelika Nicholas MD Primary Care Provider Active FREDI Wilcox Attending Provider, Referr ing Provider Active Team Status: Inactive Member Role Status Dates Dr. Angelika Nicholas MD Primary Care Provider Active Dr. Leonardo Donahue MD Attending Provider, Referring Pr ovider Active Team Status: Inactive Member Role Status Dates Dr. Angelika Nicholas MD Primary Care Provider Active Start: January 24, 2025 End: January 24, 2025 Dr. Angelika Nicholas MD Attending Provider Active Start: January 24, 2025 End: January 24, 2025 Dr. Angelika Nicholas MD Referring Provider Active Start: January 24, 2025 End: January 24, 2025 Team Status: Active Member Role Status Dates Dr. Angelika Nicholas MD Primary Care Provider Active Team Status: Inactive Member Role Status Dates Dr. Angelika Nicholas MD Primary Care Provider Active Start: March 11, 2025 End: March 11, 2025 Dr. Angelika Nicholas MD Referring Provider Active Start: March 11, 2025 End: March 11, 2025 Dr. Jose Coronado MD Attending Provider Active Start: March 11, 2025 End: March 11, 2025 Team Status: Inactive Member Role Status Dates Dr. Angelika Nicholas MD Primary Care Provider Active Start: April 11, 2025 End: April 11, 2025 Dr. Jose Coronado MD Attending Provider Active Start: April 11, 2025 End: April 11, 2025 Dr. Jose Coronado MD Referring Provider Active Start: April 11, 2025 End: April 11, 2025 Team Status: Inactive Member Role Status Dates Dr. Angelika Nicholas MD Primary Care Provider Active Start: April 25, 2025 End: April 25, 2025 Dr. Angelika Nicholas MD Referring Provider Active Start: April 25, 2025 End: April 25, 2025 Dr. Jose Coronado MD Attending Provider Active Start: April 25, 2025 End: April 25, 2025 Goals (unrecognized section and content) Goals may be documented in a n alternate sectionGoals may be documented in an alternate sectionGoals may be documented in an alternate sectionGoals may be documented in an alternate sectionGoals may be documented in an alternate section (unrecognized sect ion and content) No Status Records Found INFORMATION SOURCE (unrecogn ized section and content) DATE CREATED AUTHOR 04/26/2025 [facility] FOR RECORDS PERTAINING TO PATIENTS WHO ARE OR HAVE BEEN ENROLLED IN A CHEMICAL DEPENDENCY/SUBSTANCEABUSE PROGRAM, SOME INFORMATION MAY BE OMITTED. This clinical summary was aggregated from multiple sources. Caution should be exercised in using it in the provision of clinical care. This summary normalizes information from multiple sources, and as a consequence, information in this document may materially change the coding, format and clinical context of patient data. In addition, data may be omitted in some cases. CLINICAL DECISIONS SHOULD BE BASED ON THE PRIMARY CLINICAL RECORDS. [employer] provides no warranty or guarantee of the accuracy or completeness of information in this document.
[2025-05-06 23:30] VITALS: BP 124/81; PULSE 100; RESP 30; TEMP 37.4; O2SAT 95
[2025-05-06 23:31] LABS: Absolute Lymphocyte Count 0.95 X10^3/uL (0.83-4.51); Absolute Neutrophil Count 5.5 X10^3/uL (2.0-7.7); Basophil# 0.03 X10^3/uL; Basophil% 0.4 % (0-1); Eosinophil# 0.01 X10^3/uL; Eosinophils% 0.1 % (0-5); Hematocrit 44.1 % (40-54); Hemoglobin 16.1 g/dL (13.0-16.5); Lymphocyte # 0.95 X10^3/ul (0.83-4.51); Mean Corp Hgb Conc 36.5 g/dL (32-36); Mean Corpuscular Hgb 31.8 pg (27.0-32.0); Mean Corpuscular Volume 87.2 fL (80-94); Mean Platelet Vol. 10.8 fl (6.2-12.0); Monocyte# 0.27 X10^3/uL; NRBC Flagged by Analyzer 0 % (0-5); Neutrophil # 5.49 X10^3/uL (2.7-7.7); Neutrophil % 80.9 % (47-70); POSITIVE COUNT YES; Platelet Count 97 K/mm3 (150-450); RBC Distribution Width CV 12.1 % (11.6-14.6); RBC Distribution Width SD 38.9 fl (35.1-43.9); Red Blood Count 5.06 M/mm3 (4.6-6.2); White Blood Count 6.8 K/mm3 (4.4-11.0)
[2025-05-06 23:41] LABS: Differential Indicated SCAN CRITERIA MET
--- NOTE | 2025-05-06 23:50 | RAD_ITS ---
PROCEDURE: CHEST PA AND LATERAL 05/06/2025 REASON FOR EXAM: FEVER TECHNIQUE: CHEST PA AND LATERAL COMPARISON: CT chest on 02/17/2023 FINDINGS: Hardware: None Heart: Not significantly enlarged. Lungs: Increased interstitial markings bilaterally. No significant pleural effusion. Bones: Degenerative changes are identified within the thoracic spine. RAD/Chest PA and Lateral IMPRESSION: Bilateral interstitial opacities could be the result of infection or edema. Reading Location: [id number]
[2025-05-07] VITALS: BP 114/71; PULSE 93; RESP 20; TEMP 37.9; O2SAT 97
[2025-05-07 00:04] LABS: Anion Gap 13 (5-15); BUN 15 mg/dL (4-19); BUN/Creat Ratio 13.5 RATIO (10-20); Calcium,Total 8.6 mg/dL (7.6-11.0); Chloride 100 mmol/L (98-108); EST Glomerular Filtration Rate 80 (>60); Estimated Creatinine Clearance 107.56 ml/min (50-250); Glucose 140 mg/dL (70-99); Potassium 3.3 mmol/L (3.3-5.1); Sodium Level 134 mmol/L (133-145)
[2025-05-07 00:41] LABS: Differential Comment SCANNED; Platelet Estimate SLT DEC (ADEQ); Red Cell Morphology NORM C+C NORMAL (NORM C&C)
[2025-05-07 00:55] LABS: Mucous, Urine 0 SEEN /hpf (<or=2+)
[2025-05-07 00:57] LABS: Color, Urine Yellow (Yellow); Glucose, Dipstick Normal (Normal); Ketone-Dipstick Negative (Negative); Leukocyte Esterase-Dipstick 25 /ul (Negative); Nitrite-Dipstick Negative (Negative); Occult Blood-Urine 10 /ul (Negative); Protein-Dipstick 15 mg/dl (Negative); Urine Bilirubin Dipstick Negative (Negative); Urine Clarity Clear (Clear); Urine Urobilinogen 4 mg/dl (Normal)
[2025-05-07 01:00] VITALS: BP 128/84; PULSE 81; RESP 16; TEMP 38.2; O2SAT 94
[2025-05-07 01:38] LABS: Amorphous Sediment 1+; Bacteria 2+ /hpf (None Seen); Red Blood Cells-Urine 0-5 SEEN /hpf (0-5); Squamous Epithelial Cells - UA 0-5 SEEN /hpf (0-5); White Blood Cells 0-5 SEEN /hpf (0-5)
[2025-05-07 02:00] VITALS: BP 141/78; PULSE 108; RESP 18; TEMP 38.2; O2SAT 96
[2025-05-07] MEDS: Azithromycin 250 MG Tablet 500 MG PO (02:11)
[2025-05-07 02:13] VITALS: BP 141/78; PULSE 98; RESP 18; TEMP 36.8; O2SAT 98
[2025-05-07] MEDS: Ibuprofen 600 MG Tablet PO (02:38)
== END 2025-05-07 02:44 | disposition home or self-care (01) ==
PROVIDERS: Emergency Provider Emergency Medicine; Visit Provider Emergency Medicine
DX: J18.9 Pneumonia, unspecified organism (principal); R51.9 Headache, unspecified; R39.15 Urgency of urination; F17.210 Nicotine dependence, cigarettes, uncomplicated
CPT/HCPCS: 71046; 80048; 81001; 85025; 87631; 96360; 96361; 99283; A4216